=== PATIENT | female | born 1975 | race Caucasian/White ===

== ENCOUNTER 2019-01-04 12:21 | Emergency (ER) | payer MEDICAID ==
--- NOTE | 2019-01-04 12:51 | EDM.PDOC ---
ED HPI GENERAL MEDICAL PROBLEM - General Chief Complaint: Abdominal Pain Stated Complaint: PRIVATE VEHICLE Time Seen by Provider: 01/04/19 12:35 Source of Information: Reports: Patient History Limitations: Reports: No Limitations - History of Present Illness INITIAL COMMENTS - FREE TEXT/NARRATIVE: This 43 yo female patient reports to the ED with generalized abdominal pain and bloating. The patient reports she has been having increased abdominal pain over the past week. The patient reports she has a history of pancreatitis (previous hospitalizations in [place] and out of [facility]), Hep C, HTN, depression and anxiety. The patient reports she has been drinking up to a liter of Whiskey per day. The patient reports she drinks to control the pain, when she drinks her pain increases which just starts the cycle over. The patient also reports nausea. Onset: Gradual Duration: Week(s):, Constant, Getting Worse Location: Reports: Abdomen Quality: Reports: Other Severity: Severe Improves with: Reports: None Worsens with: Reports: None Context: Reports: Other Associated Symptoms: Reports: No Other Symptoms Abdomen Pain Score (Numeric/FACES): 8 - Related Data Allergies Allergy/AdvReac Type Severity Reaction Status Date / Time No Known Allergies Allergy Verified 01/04/19 12:41 Home Meds: Home Meds Sertraline [Zoloft] 25 mg PO DAILY 06/20/18 [History] traZODone HCl [Trazodone HCl] 50 mg PO DAILY 06/20/18 [History] Propranolol [Inderal] 20 mg PO DAILY 01/04/19 [History] Past Medical History Gastrointestinal History: Reports: Hepatitis, Pancreatitis Genitourinary History: Reports: Renal Calculus Psychiatric History: Reports: Anxiety, Depression - Infectious Disease History Infectious Disease History: Reports: Hepatitis C Social & Family History - Family History Family Medical History: Noncontributory - Tobacco Use Smoking Status *Q: Former Smoker Used Tobacco, but Quit: Yes Month/Year Tobacco Last Used: 2017 - Caffeine Use Caffeine Use: Reports: None - Alcohol Use Days Per Week of Alcohol Use: 7 Number of Drinks Per Day: 1 Total Drinks Per Week: 7 - Recreational Drug Use Recreational Drug Use: No ED ROS GENERAL - Review of Systems Review Of Systems: ROS reveals no pertinent complaints other than HPI. ED EXAM, GI/ABD - Physical Exam Exam: See Below Exam Limited By: No Limitations General Appearance: Alert, WD/WN, Moderate Distress Eyes: Bilateral: Normal Appearance, EOMI Ears: Normal External Exam, Normal Canal, Hearing Grossly Normal, Normal TMs Nose: Normal Inspection, Normal Mucosa, No Blood Throat/Mouth: Normal Inspection, Normal Lips, Normal Teeth, Normal Gums, Normal Oropharynx, Normal Voice, No Airway Compromise Head: Atraumatic, Normocephalic Neck: Normal Inspection, Supple, Non-Tender, Full Range of Motion Respiratory/Chest: No Respiratory Distress, Lungs Clear, Normal Breath Sounds, No Accessory Muscle Use, Chest Non-Tender Cardiovascular: Normal Peripheral Pulses, Regular Rate, Rhythm, No Edema, No Gallop, No JVD, No Murmur, No Rub GI/Abdominal Exam: No Abnormal Bruit, No Mass, Pelvis Stable, Distended, Tender (diffuse (increased tenderness in upper abdomen)) (Female) Exam: Deferred Rectal (Female) Exam: Deferred Back Exam: Normal Inspection, Full Range of Motion, NT Extremities: Normal Inspection, Normal Range of Motion, Non-Tender, Normal Capillary Refill, No Pedal Edema Neurological: Alert, Oriented, CN II-XII Intact, Normal Cognition, Normal Gait, Normal Reflexes, No Motor/Sensory Deficits Psychiatric: Normal Affect, Normal Mood Skin Exam: Warm, Dry, Intact, Normal Color, No Rash Lymphatic: No Adenopathy Course - Vital Signs Last Recorded V/S: Last Vital Signs Temp 36.6 C 01/04/19 15:13 Pulse 70 01/04/19 15:13 Resp 20 01/04/19 15:13 BP 113/75 01/04/19 15:13 Pulse Ox 96 01/04/19 15:13 - Orders/Labs/Meds Orders: Active Orders 24 hr Category Date Time Status Lactated Ringers [Ringers, Lactated] 1,000 ml Med 01/04/19 12:45 Ordered IV ASDIRECTED Lactated Ringers [Ringers, Lactated] 1,000 ml Med 01/04/19 16:22 Ordered IV ASDIRECTED Medication Orders Lactated Ringer's (Ringers, Lactated) 1,000 mls @ 999 mls/hr IV ASDIRECTED JOHANA Last Admin: 01/04/19 13:04 Dose: 999 mls/hr Lactated Ringer's (Ringers, Lactated) 1,000 mls @ 250 mls/hr IV ASDIRECTED [facility] Labs: Laboratory Tests 01/04/19 01/04/19 01/04/19 Range/Units 12:52 12:52 12:52 WBC (5.0-10.0) 10^3/uL RBC (4.2-5.4) 10^6/uL Hgb (12.0-16.0) g/dL Hct (37.0-47.0) % MCV (80-100) fL MCH (27.0-34.0) pg MCHC (33.0-35.0) g/dL Plt Count (150-450) 10^3/uL Neut % (Auto) (42.2-75.2) % Lymph % (Auto) (20.5-50.1) % Evangeline % (Auto) (2-8) % Eos % (Auto) (1.0-3.0) % Baso % (Auto) (0.0-1.0) % Sodium (135-145) mmol/L Potassium (3.6-5.0) mmol/L Chloride (101-111) mmol/L Carbon Dioxide (21.0-31.0) mmol/L Anion Gap BUN (7-18) mg/dL Creatinine (0.6-1.3) mg/dL Est Cr Clr Drug Dosing mL/min Estimated GFR (MDRD) BUN/Creatinine Ratio Glucose (74-105) mg/dL Calcium (8.4-10.2) mg/dl Magnesium (1.8-2.5) mg/dL Total Bilirubin (0.2-1.0) mg/dL AST (10-42) IU/L ALT (10-60) IU/L Alkaline Phosphatase (42-121) IU/L Ammonia (11-35) umol/L Total Protein (6.7-8.2) g/dl Albumin (3.2-5.5) g/dl Globulin Albumin/Globulin Ratio Amylase (28-100) U/L Lipase (22-51) U/L Urine Color Yellow (YELLOW) Urine Appearance Clear (CLEAR) Urine pH 6.0 (5.0-9.0) Ur Specific [place] <= 1.005 (1.005-1.030) Urine Protein Negative (NEGATIVE) Urine Glucose (UA) Negative (NEGATIVE) Urine Ketones Negative (NEGATIVE) Urine Occult Blood Negative (NEGATIVE) Urine Nitrite Negative (NEGATIVE) Urine Bilirubin Negative (NEGATIVE) Urine Urobilinogen 0.2 (0.2-1.0) mg/dL Ur Leukocyte Esterase Negative (NEGATIVE) Urine HCG, Qual Negative Salicylates mg/dL Urine Opiates Screen Negative (NEGATIVE) Ur Oxycodone Screen Negative (NEGATIVE) Urine Methadone Screen Negative (NEGATIVE) Acetaminophen ug/mL Ur Barbiturates Screen Negative (NEGATIVE) U Tricyclic Antidepress Negative (NEGATIVE) Ur Phencyclidine Scrn Negative (NEGATIVE) Ur Amphetamine Screen Negative (NEGATIVE) U Methamphetamines Scrn Negative (NEGATIVE) Urine MDMA Screen Negative (NEGATIVE) U Benzodiazepines Scrn Negative (NEGATIVE) Urine Cocaine Screen Negative (NEGATIVE) U Marijuana (THC) Screen Negative (NEGATIVE) Ethyl Alcohol mg/dL 01/04/19 01/04/19 01/04/19 Range/Units 13:01 13:01 13:01 WBC 4.5 L (5.0-10.0) 10^3/uL RBC 4.26 (4.2-5.4) 10^6/uL Hgb 13.9 (12.0-16.0) g/dL Hct 40.3 (37.0-47.0) % MCV 94.6 (80-100) fL MCH 32.6 (27.0-34.0) pg MCHC 34.5 (33.0-35.0) g/dL Plt Count 126 L (150-450) 10^3/uL Neut % (Auto) 58.2 (42.2-75.2) % Lymph % (Auto) 27.9 (20.5-50.1) % Evangeline % (Auto) 11.3 H (2-8) % Eos % (Auto) 2.2 (1.0-3.0) % Baso % (Auto) 0.4 (0.0-1.0) % Sodium (135-145) mmol/L Potassium (3.6-5.0) mmol/L Chloride (101-111) mmol/L Carbon Dioxide (21.0-31.0) mmol/L Anion Gap BUN (7-18) mg/dL Creatinine (0.6-1.3) mg/dL Est Cr Clr Drug Dosing mL/min Estimated GFR (MDRD) BUN/Creatinine Ratio Glucose (74-105) mg/dL Calcium (8.4-10.2) mg/dl Magnesium 1.7 L (1.8-2.5) mg/dL Total Bilirubin (0.2-1.0) mg/dL AST (10-42) IU/L ALT (10-60) IU/L Alkaline Phosphatase (42-121) IU/L Ammonia 39 H (11-35) umol/L Total Protein (6.7-8.2) g/dl Albumin (3.2-5.5) g/dl Globulin Albumin/Globulin Ratio Amylase 56 (28-100) U/L Lipase 39 (22-51) U/L Urine Color (YELLOW) Urine Appearance (CLEAR) Urine pH (5.0-9.0) Ur Specific [place] (1.005-1.030) Urine Protein (NEGATIVE) Urine Glucose (UA) (NEGATIVE) Urine Ketones (NEGATIVE) Urine Occult Blood (NEGATIVE) Urine Nitrite (NEGATIVE) Urine Bilirubin (NEGATIVE) Urine Urobilinogen (0.2-1.0) mg/dL Ur Leukocyte Esterase (NEGATIVE) Urine HCG, Qual Salicylates < 4 mg/dL Urine Opiates Screen (NEGATIVE) Ur Oxycodone Screen (NEGATIVE) Urine Methadone Screen (NEGATIVE) Acetaminophen < 10 ug/mL Ur Barbiturates Screen (NEGATIVE) U Tricyclic Antidepress (NEGATIVE) Ur Phencyclidine Scrn (NEGATIVE) Ur Amphetamine Screen (NEGATIVE) U Methamphetamines Scrn (NEGATIVE) Urine MDMA Screen (NEGATIVE) U Benzodiazepines Scrn (NEGATIVE) Urine Cocaine Screen (NEGATIVE) U Marijuana (THC) Screen (NEGATIVE) Ethyl Alcohol 258 mg/dL 01/04/19 Range/Units 13:01 WBC (5.0-10.0) 10^3/uL RBC (4.2-5.4) 10^6/uL Hgb (12.0-16.0) g/dL Hct (37.0-47.0) % MCV (80-100) fL MCH (27.0-34.0) pg MCHC (33.0-35.0) g/dL Plt Count (150-450) 10^3/uL Neut % (Auto) (42.2-75.2) % Lymph % (Auto) (20.5-50.1) % Evangeline % (Auto) (2-8) % Eos % (Auto) (1.0-3.0) % Baso % (Auto) (0.0-1.0) % Sodium 139 (135-145) mmol/L Potassium 4.0 (3.6-5.0) mmol/L Chloride 102 (101-111) mmol/L Carbon Dioxide 27.0 (21.0-31.0) mmol/L Anion Gap 14.0 BUN 15 (7-18) mg/dL Creatinine 0.9 (0.6-1.3) mg/dL Est Cr Clr Drug Dosing 71.03 mL/min Estimated GFR (MDRD) > 60 BUN/Creatinine Ratio 16.66 Glucose 90 (74-105) mg/dL Calcium 9.0 (8.4-10.2) mg/dl Magnesium (1.8-2.5) mg/dL Total Bilirubin 0.9 (0.2-1.0) mg/dL AST 331 H (10-42) IU/L ALT 159 H (10-60) IU/L Alkaline Phosphatase 102 (42-121) IU/L Ammonia (11-35) umol/L Total Protein 8.0 (6.7-8.2) g/dl Albumin 4.3 (3.2-5.5) g/dl Globulin 3.7 Albumin/Globulin Ratio 1.16 Amylase (28-100) U/L Lipase (22-51) U/L Urine Color (YELLOW) Urine Appearance (CLEAR) Urine pH (5.0-9.0) Ur Specific [place] (1.005-1.030) Urine Protein (NEGATIVE) Urine Glucose (UA) (NEGATIVE) Urine Ketones (NEGATIVE) Urine Occult Blood (NEGATIVE) Urine Nitrite (NEGATIVE) Urine Bilirubin (NEGATIVE) Urine Urobilinogen (0.2-1.0) mg/dL Ur Leukocyte Esterase (NEGATIVE) Urine HCG, Qual Salicylates mg/dL Urine Opiates Screen (NEGATIVE) Ur Oxycodone Screen (NEGATIVE) Urine Methadone Screen (NEGATIVE) Acetaminophen ug/mL Ur Barbiturates Screen (NEGATIVE) U Tricyclic Antidepress (NEGATIVE) Ur Phencyclidine Scrn (NEGATIVE) Ur Amphetamine Screen (NEGATIVE) U Methamphetamines Scrn (NEGATIVE) Urine MDMA Screen (NEGATIVE) U Benzodiazepines Scrn (NEGATIVE) Urine Cocaine Screen (NEGATIVE) U Marijuana (THC) Screen (NEGATIVE) Ethyl Alcohol mg/dL Meds: Medications Generic Name Dose Route Start Last Admin Trade Name Freq PRN Reason Stop Dose Admin Lactated Ringer's 1,000 mls @ 999 mls/hr 01/04/19 12:45 01/04/19 13:04 Ringers, Lactated IV 999 mls/hr ASDIRECTED JOHANA Administration Lactated Ringer's 1,000 mls @ 250 mls/hr 01/04/19 16:22 Ringers, Lactated IV ASDIRECTED JOHANA Discontinued Medications Generic Name Dose Route Start Last Admin Trade Name Amanda PRN Reason Stop Dose Admin Hydromorphone HCl 1 mg 01/04/19 13:18 01/04/19 13:25 Dilaudid IVPUSH 01/04/19 13:19 1 mg ONETIME ONE Administration Iopamidol 75 ml 01/04/19 13:41 01/04/19 14:30 Isovue-300 (61%) IVPUSH 01/04/19 13:42 75 ml ONETIME ONE Administration Ondansetron HCl 4 mg 01/04/19 12:41 01/04/19 13:06 Zofran IV 01/04/19 12:42 4 mg ONETIME ONE Administration Departure - Departure Time of Disposition: 16:23 Disposition: DC/Tfer to Acute Hospital 02 Condition: Fair Clinical Impression: ETOH abuse Pancreatitis, chronic Qualifiers: Pancreatitis type: alcohol induced Qualified Code(s): K86.0 - Alcohol-induced chronic pancreatitis Abdominal pain Qualifiers: Abdominal location: epigastric Qualified Code(s): R10.13 - Epigastric pain - Discharge Information *PRESCRIPTION DRUG MONITORING PROGRAM REVIEWED*: Not Applicable *COPY OF PRESCRIPTION DRUG MONITORING REPORT IN PATIENT REBEKAH: Not Applicable Forms: Interfacility Transfer EMTALA Care Plan Goals: Discussed the patient's history, examination, lab and CT results with Dr. Adame. Dr. Adame accepted the patient for continued evaluation and further management as an inpatient at [facility] in [place]. The patient will be transported by [facility]. - My Orders Last 24 Hours: My Active Orders 01/04/19 12:45 Lactated Ringers [Ringers, Lactated] 1,000 ml IV ASDIRECTED 01/04/19 16:22 Lactated Ringers [Ringers, Lactated] 1,000 ml IV ASDIRECTED - Assessment/Plan Last 24 Hours: My Active Orders 01/04/19 12:45 Lactated Ringers [Ringers, Lactated] 1,000 ml IV ASDIRECTED 01/04/19 16:22 Lactated Ringers [Ringers, Lactated] 1,000 ml IV ASDIRECTED
[2019-01-04] MEDS: Lactated Ringers 1,000 ML IV SCH ×2 (13:04→16:30)
[2019-01-04] MEDS: Ondansetron 4 MG/2 ML SDV IV ONE (13:06)
[2019-01-04] MEDS: HYDROmorphone 1 MG/ML Syringe IVPUSH ONE ×2 (13:25→16:45)
[2019-01-04 13:39] LABS: CHLORIDE,CL 102 mmol/L (101-111); SODIUM,NA 139 mmol/L (135-145)
[2019-01-04 13:43] LABS: ACETAMINOPHEN < 10 ug/mL
[2019-01-04] MEDS: Iopamidol 612 MG/ML 75 ML Bottle IVPUSH ONE (14:30)
--- NOTE | 2019-01-04 14:57 | CT ---
EXAMINATION: Abdomen Pelvis w Cont SEX: Female AGE: 43 years CLINICAL HISTORY: 43-year-old hypertensive female with Abdominal pain and bloating. Scan technique: Volume acquisition of data from the abdomen and pelvis obtained without oral contrast but during intravenous administration 100 cc nonionic Isovue contrast (3 cc/s via injector) while the patient was lying supine on the Siemens multislice scanner [place], [place]. All data archived in the PACS system for storage, reformatting axial/sagittal/coronal planes and study. INTERPRETATION: 1. Large spleen (14 cm long) homogeneously dense without sign of splenic mass or infarct. 2. Gallbladder unremarkable. Fatty liver. Stomach, pancreas and adrenal glands unremarkable. 3. Nephrolithiasis (solitary large 6 mm diameter lower pole calyceal calcification right kidney; smaller 5.4 mm diameter calcification mid pole calyx left kidney; 6 mm diameter lower pole calyceal calcification contralateral left kidney). 4. Diverticulosis sigmoid colon without associated signs of inflammation. 5. No sign of abscess, pelvic or abdominal mass lesion, mesenteric or retroperitoneal lymphadenopathy, mechanical bowel obstruction, ascites or free intraperitoneal air. Midline uterus unremarkable. (Multiple phleboliths in the pelvis) 6. No ventral wall or inguinal hernias. Normal caliber aortoiliac vessels. Lumbar spine unremarkable. 7. Lung bases clear. Normal cardiac silhouette. CONCLUSION: Bilateral nephrolithiasis without current signs of obstructive uropathy. Diverticulosis sigmoid colon. Splenomegaly.
== END 2019-01-04 16:50 ==
LOC: DL.ED 12:21
DX: K86.0 Alcohol-induced chronic pancreatitis (principal); F10.10 Alcohol abuse, uncomplicated; F41.9 Anxiety disorder, unspecified; F32.9 Major depressive disorder, single episode, unspecified; Z79.899 Other long term (current) drug therapy; Z87.891 Personal history of nicotine dependence; Y90.8 Blood alcohol level of 240 mg/100 ml or more
CPT/HCPCS: 36415; 74177; 80053; 80305-QW; 81003; 81025; 82140; 82150; 83690; 83735; 85025; 96365; 96375; 96376; 99284-25; G0480; J1170; J2405; J7120; Q9967

== ENCOUNTER 2019-11-03 11:42 | Emergency (ER) | payer MEDICAID ==
[2019-11-03] MEDS ORDERED: MVI, Adult with Vitamin K 10 ML, Folic Acid 1 MG, Thiamine 100 MG in Lactated Ringers 1... IV ONE ×4 (11:59)
[2019-11-03 12:47] LABS: CHLORIDE,CL 98 mmol/L (98-107); SODIUM,NA 135 mmol/L (136-145)
[2019-11-03] MEDS ORDERED: Potassium Chloride 10 MEQ Tab.ER PO ONE (12:58)
[2019-11-03] MEDS ORDERED: Sodium Chloride 0.9% 500 ML IV ONE (12:59)
--- NOTE | 2019-11-03 13:01 | CT ---
EXAMINATION: Head wo Cont SEX: Female AGE: 43 years CLINICAL HISTORY: 43-year-old female emergency department with altered mental status. Hypertension. Scan technique: Volume acquisition of data emergency unenhanced CT scan of the head and brain obtained with the patient lying supine on the Siemens multislice scanner [place], [place]. All data archived in the PACS system for storage, reformatting axial/sagittal/coronal planes and study (bone/brain windows). Interpretation: 1. Uniformly thick bony calvarium. No sign of pathologic skeletal lesion, skull fracture, underlying brain contusion or epidural/subdural hematoma. 2. Symmetric clear pneumatization of the paranasal and mastoid sinuses. Normal TMJs and optic globes. 3. No supratentorial or posterior fossa mass lesion. 4. Symmetric hatch-white matter pattern and underlying mirror-image normal ventricular system. Physiologic midline pineal and symmetric choroid plexus calcifications. 5. No focal areas of ischemic infarct or signs of encephalomalacia. 6. No sign of acute intracerebral, intraventricular or subarachnoid bleed. 7. Cerebellum and brainstem unremarkable. CONCLUSION: Negative emergency unenhanced CT scan, head and brain.
--- NOTE | 2019-11-03 13:38 | EDM.PDOC ---
ED HPI GENERAL MEDICAL PROBLEM - General Chief Complaint: Neurological Problem Stated Complaint: UNK Time Seen by Provider: 11/03/19 12:40 Source of Information: Reports: Patient, RN, Other History Limitations: Reports: No Limitations - History of Present Illness INITIAL COMMENTS - FREE TEXT/NARRATIVE: ED via [facility] with altered mental status. Patient reported to have gone to clinic there with fatigue and confusion. No known injury. No fever or cough. Hx ETOH, Remote drug use. VSS. Patient drowsy on arrival but responds to questions - Related Data Allergies Allergy/AdvReac Type Severity Reaction Status Date / Time No Known Allergies Allergy Verified 11/03/19 12:34 Home Meds: Home Meds Sertraline [Zoloft] 25 mg PO DAILY 06/20/18 [History] traZODone HCl [Trazodone HCl] 50 mg PO DAILY 06/20/18 [History] Propranolol [Inderal] 20 mg PO DAILY 01/04/19 [History] Past Medical History Gastrointestinal History: Reports: Hepatitis, Pancreatitis Genitourinary History: Reports: Renal Calculus Psychiatric History: Reports: Anxiety, Depression - Infectious Disease History Infectious Disease History: Reports: Hepatitis C Social & Family History - Family History Family Medical History: Noncontributory - Tobacco Use Smoking Status *Q: Never Smoker - Caffeine Use Caffeine Use: Reports: None - Alcohol Use Days Per Week of Alcohol Use: 7 Number of Drinks Per Day: 10 Total Drinks Per Week: 70 - Recreational Drug Use Recreational Drug Use: No ED ROS GENERAL - Review of Systems Review Of Systems: Comprehensive ROS is negative, except as noted in HPI. - Physical Exam Exam: See Below Exam Limited By: No Limitations General Appearance: Alert, Mild Distress Eye Exam: Bilateral Eye: EOMI Ears: Normal External Exam Nose: Normal Inspection Throat/Mouth: Normal Inspection Respiratory/Chest: No Respiratory Distress Cardiovascular: Normal Peripheral Pulses, Regular Rate, Rhythm. No: No Edema (trace) GI/Abdominal: Normal Bowel Sounds, Soft, Distended. No: Abnormal Bowel Sounds Neuro Exam (Abbreviated): Alert, Oriented (person place, slow responses) Back Exam: Normal Inspection, Full Range of Motion Extremities: Normal Range of Motion Psychiatric: Normal Affect, Flat Affect Skin Exam: Warm, Dry, Intact, Pallor Course - Vital Signs Last Recorded V/S: Last Vital Signs Temp 97.8 F 11/03/19 12:39 Pulse 73 11/03/19 12:39 Resp 16 11/03/19 12:39 BP 120/75 11/03/19 12:39 Pulse Ox 96 11/03/19 12:39 - Orders/Labs/Meds Labs: Laboratory Tests 11/03/19 11/03/19 11/03/19 Range/Units 12:06 12:18 12:18 WBC 8.2 (5.0-10.0) 10^3/uL RBC 3.30 L (4.2-5.4) 10^6/uL Hgb 12.5 (12.0-16.0) g/dL Hct 34.8 L (37.0-47.0) % MCV 105.5 H D (80-100) fL MCH 37.9 H (27.0-34.0) pg MCHC 35.9 H (33.0-35.0) g/dL Plt Count 158 (150-450) 10^3/uL Neut % (Auto) 70.9 (42.2-75.2) % Lymph % (Auto) 19.6 L (20.5-50.1) % Morrill % (Auto) 8.4 H (2-8) % Eos % (Auto) 1.0 (1.0-3.0) % Baso % (Auto) 0.1 (0.0-1.0) % PT 16.8 H (9.0-12.0) SEC INR 1.8 H (0.9-1.2) Sodium (136-145) mmol/L Potassium (3.5-5.1) mmol/L Chloride (98-107) mmol/L Carbon Dioxide (21-32) mmol/L Anion Gap (7-13) mEq/L BUN (7-18) mg/dL Creatinine (0.55-1.02) mg/dL Est Cr Clr Drug Dosing Estimated GFR (MDRD) BUN/Creatinine Ratio (No establ ref range) Glucose (74-99) mg/dL POC Glucose 84 (70-105) mg/dl Lactic Acid (0.4-2.0) mmol/L Calcium (8.5-10.1) mg/dL Total Bilirubin (0.2-1.0) mg/dL AST (15-37) U/L ALT (14-59) U/L Alkaline Phosphatase (46-116) U/L Ammonia (11-32) umol/L Total Protein (6.4-8.2) g/dL Albumin (3.4-5.0) g/dL Globulin Albumin/Globulin Ratio Amylase (25-115) U/L Lipase (73-393) U/L HCG, Qual Urine Color (YELLOW) Urine Appearance (CLEAR) Urine pH (5.0-9.0) Ur Specific La[place] (1.005-1.030) Urine Protein (NEGATIVE) Urine Glucose (UA) (NEGATIVE) Urine Ketones (NEGATIVE) Urine Occult Blood (NEGATIVE) Urine Nitrite (NEGATIVE) Urine Bilirubin (NEGATIVE) Urine Urobilinogen (0.2-1.0) mg/dL Ur Leukocyte Esterase (NEGATIVE) Urine RBC /HPF Urine WBC (0-5/HPF) /HPF Ur Epithelial Cells (NOT SEEN) /HPF Amorphous Sediment (NOT SEEN) /HPF Urine Bacteria (0-FEW/HPF) /HPF Granular Casts (Auto) Urine Mucus (NOT SEEN) /LPF Urine Opiates Screen (NEGATIVE) Ur Oxycodone Screen (NEGATIVE) Urine Methadone Screen (NEGATIVE) Ur Barbiturates Screen (NEGATIVE) U Tricyclic Antidepress (NEGATIVE) Ur Phencyclidine Scrn (NEGATIVE) Ur Amphetamine Screen (NEGATIVE) U Methamphetamines Scrn (NEGATIVE) Urine MDMA Screen (NEGATIVE) U Benzodiazepines Scrn (NEGATIVE) Urine Cocaine Screen (NEGATIVE) U Marijuana (THC) Screen (NEGATIVE) Ethyl Alcohol (0) mg/dL Ketones 11/03/19 11/03/19 11/03/19 Range/Units 12:18 12:18 12:18 WBC (5.0-10.0) 10^3/uL RBC (4.2-5.4) 10^6/uL Hgb (12.0-16.0) g/dL Hct (37.0-47.0) % MCV (80-100) fL MCH (27.0-34.0) pg MCHC (33.0-35.0) g/dL Plt Count (150-450) 10^3/uL Neut % (Auto) (42.2-75.2) % Lymph % (Auto) (20.5-50.1) % Morrill % (Auto) (2-8) % Eos % (Auto) (1.0-3.0) % Baso % (Auto) (0.0-1.0) % PT (9.0-12.0) SEC INR (0.9-1.2) Sodium 135 L (136-145) mmol/L Potassium 3.0 L (3.5-5.1) mmol/L Chloride 98 (98-107) mmol/L Carbon Dioxide 25 (21-32) mmol/L Anion Gap 15.0 H (7-13) mEq/L BUN 24 H (7-18) mg/dL Creatinine 1.31 H (0.55-1.02) mg/dL Est Cr Clr Drug Dosing TNP Estimated GFR (MDRD) 45 BUN/Creatinine Ratio 18.3 (No establ ref range) Glucose 84 (74-99) mg/dL POC Glucose (70-105) mg/dl Lactic Acid 0.4 (0.4-2.0) mmol/L Calcium 8.4 L (8.5-10.1) mg/dL Total Bilirubin 3.2 H (0.2-1.0) mg/dL AST 434 H (15-37) U/L ALT 132 H (14-59) U/L Alkaline Phosphatase 103 (46-116) U/L Ammonia 164 H (11-32) umol/L Total Protein 7.7 (6.4-8.2) g/dL Albumin 2.9 L (3.4-5.0) g/dL Globulin 4.8 Albumin/Globulin Ratio 0.60 Amylase 46 (25-115) U/L Lipase 333 (73-393) U/L HCG, Qual Urine Color (YELLOW) Urine Appearance (CLEAR) Urine pH (5.0-9.0) Ur Specific [place] (1.005-1.030) Urine Protein (NEGATIVE) Urine Glucose (UA) (NEGATIVE) Urine Ketones (NEGATIVE) Urine Occult Blood (NEGATIVE) Urine Nitrite (NEGATIVE) Urine Bilirubin (NEGATIVE) Urine Urobilinogen (0.2-1.0) mg/dL Ur Leukocyte Esterase (NEGATIVE) Urine RBC /HPF Urine WBC (0-5/HPF) /HPF Ur Epithelial Cells (NOT SEEN) /HPF Amorphous Sediment (NOT SEEN) /HPF Urine Bacteria (0-FEW/HPF) /HPF Granular Casts (Auto) Urine Mucus (NOT SEEN) /LPF Urine Opiates Screen (NEGATIVE) Ur Oxycodone Screen (NEGATIVE) Urine Methadone Screen (NEGATIVE) Ur Barbiturates Screen (NEGATIVE) U Tricyclic Antidepress (NEGATIVE) Ur Phencyclidine Scrn (NEGATIVE) Ur Amphetamine Screen (NEGATIVE) U Methamphetamines Scrn (NEGATIVE) Urine MDMA Screen (NEGATIVE) U Benzodiazepines Scrn (NEGATIVE) Urine Cocaine Screen (NEGATIVE) U Marijuana (THC) Screen (NEGATIVE) Ethyl Alcohol < 3 (0) mg/dL Ketones Positive 11/03/19 11/03/19 11/03/19 Range/Units 12:18 12:54 12:54 WBC (5.0-10.0) 10^3/uL RBC (4.2-5.4) 10^6/uL Hgb (12.0-16.0) g/dL Hct (37.0-47.0) % MCV (80-100) fL MCH (27.0-34.0) pg MCHC (33.0-35.0) g/dL Plt Count (150-450) 10^3/uL Neut % (Auto) (42.2-75.2) % Lymph % (Auto) (20.5-50.1) % Morrill % (Auto) (2-8) % Eos % (Auto) (1.0-3.0) % Baso % (Auto) (0.0-1.0) % PT (9.0-12.0) SEC INR (0.9-1.2) Sodium (136-145) mmol/L Potassium (3.5-5.1) mmol/L Chloride (98-107) mmol/L Carbon Dioxide (21-32) mmol/L Anion Gap (7-13) mEq/L BUN (7-18) mg/dL Creatinine (0.55-1.02) mg/dL Est Cr Clr Drug Dosing Estimated GFR (MDRD) BUN/Creatinine Ratio (No establ ref range) Glucose (74-99) mg/dL POC Glucose (70-105) mg/dl Lactic Acid (0.4-2.0) mmol/L Calcium (8.5-10.1) mg/dL Total Bilirubin (0.2-1.0) mg/dL AST (15-37) U/L ALT (14-59) U/L Alkaline Phosphatase (46-116) U/L Ammonia (11-32) umol/L Total Protein (6.4-8.2) g/dL Albumin (3.4-5.0) g/dL Globulin Albumin/Globulin Ratio Amylase (25-115) U/L Lipase (73-393) U/L HCG, Qual Negative Urine Color Dark yellow (YELLOW) Urine Appearance Slightly cloudy (CLEAR) Urine pH 6.5 (5.0-9.0) Ur Specific [place] 1.025 (1.005-1.030) Urine Protein 30 H (NEGATIVE) Urine Glucose (UA) Negative (NEGATIVE) Urine Ketones 15 H (NEGATIVE) Urine Occult Blood Large H (NEGATIVE) Urine Nitrite Negative (NEGATIVE) Urine Bilirubin Moderate H (NEGATIVE) Urine Urobilinogen 4.0 H (0.2-1.0) mg/dL Ur Leukocyte Esterase Small H (NEGATIVE) Urine RBC 50-75 H /HPF Urine WBC 10-20 H (0-5/HPF) /HPF Ur Epithelial Cells Few (NOT SEEN) /HPF Amorphous Sediment Moderate H (NOT SEEN) /HPF Urine Bacteria Few (0-FEW/HPF) /HPF Granular Casts (Auto) Occasional Urine Mucus Occasional (NOT SEEN) /LPF Urine Opiates Screen Negative (NEGATIVE) Ur Oxycodone Screen Negative (NEGATIVE) Urine Methadone Screen Negative (NEGATIVE) Ur Barbiturates Screen Negative (NEGATIVE) U Tricyclic Antidepress Negative (NEGATIVE) Ur Phencyclidine Scrn Negative (NEGATIVE) Ur Amphetamine Screen Negative (NEGATIVE) U Methamphetamines Scrn Negative (NEGATIVE) Urine MDMA Screen Negative (NEGATIVE) U Benzodiazepines Scrn Negative (NEGATIVE) Urine Cocaine Screen Negative (NEGATIVE) U Marijuana (THC) Screen Negative (NEGATIVE) Ethyl Alcohol (0) mg/dL Ketones Meds: Medications Discontinued Medications Generic Name Dose Route Start Last Admin Trade Name Freq PRN Reason Stop Dose Admin Multivitamins/Minerals 10 ml/ 1,011.2 mls @ 999 mls/hr 11/03/19 11:59 11/03/19 12:58 Folic Acid 1 mg/ Thiamine HCl IV 11/03/19 12:59 999 mls/hr 100 mg/ Lactated Ringer's ONETIME ONE Administration Sodium Chloride 500 mls @ 100 mls/hr 11/03/19 12:59 11/03/19 13:59 Normal Saline IV 11/03/19 17:58 100 mls/hr ONETIME ONE Administration Potassium Chloride 10 meq 11/03/19 12:58 11/03/19 13:26 Klor-Con 10 PO 11/03/19 12:59 10 meq ONETIME ONE Administration - Re-Assessments/Exams Free Text/Narrative Re-Assessment/Exam: 11/03/19 13:40 Dr Adame accepting. Tx via [facility]. Departure - Departure Time of Disposition: 13:40 Disposition: DC/Tfer to Acute Hospital 02 Condition: Fair Clinical Impression: Hepatic encephalopathy, Hypoglycemia, Hypokalemia - Discharge Information *PRESCRIPTION DRUG MONITORING PROGRAM REVIEWED*: No *COPY OF PRESCRIPTION DRUG MONITORING REPORT IN PATIENT REBEKAH: No Referrals: Elan Torres [facility] [Primary Care Provider] - Forms: ED Department Discharge, Interfacility Transfer MIKHAIL Sepsis Event Note (ED) - Evaluation Sepsis Screening Result: No Definite Risk
== END 2019-11-03 14:26 ==
LOC: DL.ED 11:42
DX: K72.90 Hepatic failure, unspecified without coma (principal); E16.2 Hypoglycemia, unspecified; E87.6 Hypokalemia; F41.9 Anxiety disorder, unspecified; F32.9 Major depressive disorder, single episode, unspecified; Z79.899 Other long term (current) drug therapy
CPT/HCPCS: 36415; 70450; 80053; 80305; 80307; 81001; 82009; 82140; 82150; 82962; 83605; 83690; 84703; 85025; 85610; 87086; 87088; 87186; 96365; 99285; A9270; J3411; J7040; J7120; J3490

== ENCOUNTER 2019-12-15 12:53 | Emergency (ER) | payer MEDICAID ==
--- NOTE | 2019-12-15 13:08 | EDM.PDOC ---
ED HPI GENERAL MEDICAL PROBLEM - General Chief Complaint: Neurological Problem Stated Complaint: AMBULANCE Time Seen by Provider: 12/15/19 13:08 Source of Information: Reports: Patient, EMS, Old Records, RN, RN Notes Reviewed History Limitations: Reports: Altered Mental Status - History of Present Illness INITIAL COMMENTS - FREE TEXT/NARRATIVE: Pt arrives to ER by [facility] with EMS called due to c/o "not feeling well for the past few days". Pt's boyfriend reported to EMS that the pt has become lethargic and confused. EMS reports pt was somnolent but aroused and responded to verbal stimuli and did answer questions. Pt has history of cirrhosis, pancreatitis, end stage liver disease and hepatic encephalopathy. Pt gives no further history upon arrival to ER. Pt denies any recent falls or head injury. Onset: Gradual Duration: Day(s): (3), Constant, Getting Worse Location: Reports: Generalized Quality: Reports: Other (Denies pain) Severity: Severe Improves with: Reports: None Worsens with: Reports: None Associated Symptoms: Reports: No Other Symptoms - Related Data Allergies Allergy/AdvReac Type Severity Reaction Status Date / Time No Known Allergies Allergy Verified 11/03/19 12:34 Home Meds: Home Meds Sertraline [Zoloft] 25 mg PO DAILY 06/20/18 [History] traZODone HCl [Trazodone HCl] 50 mg PO DAILY 06/20/18 [History] Propranolol [Inderal] 20 mg PO DAILY 01/04/19 [History] Past Medical History Gastrointestinal History: Reports: Cirrhosis, Hepatitis, Pancreatitis Genitourinary History: Reports: Renal Calculus Neurological History: Reports: Other (See Below) (Hepatic Encephalopathy) Psychiatric History: Reports: Anxiety, Depression - Infectious Disease History Infectious Disease History: Reports: Hepatitis C Social & Family History - Family History Family Medical History: Noncontributory - Caffeine Use Caffeine Use: Reports: None - Living Situation & Occupation Living situation: Reports: with Significant Other Occupation: Disabled ED ROS GENERAL - Review of Systems Review Of Systems: Unable To Obtain Reason Not Obtained: Altered mental status - Physical Exam Exam: See Below Exam Limited By: Altered Mental Status General Appearance: No Apparent Distress, Lethargic, Other (Chronically ill appearing) Eye Exam: Bilateral Eye: PERRL (Mild scleral icterus) Nose: Normal Inspection, No Blood Throat/Mouth: Normal Lips, No Airway Compromise Head Exam: Atraumatic, Normocephalic Neck: Normal Inspection, Full Range of Motion Respiratory/Chest: No Respiratory Distress, No Accessory Muscle Use, Chest Non- Tender, Decreased Breath Sounds. No: Crackles, Rales, Rhonchi, Wheezing, Stridor Cardiovascular: Regular Rate, Rhythm, No Edema GI/Abdominal: Normal Bowel Sounds, Soft, Non-Tender, Hepatomegaly. No: Guarding, Rigid, Rebound Neuro Exam (Abbreviated): Slow to Respond, Other (Somnolent, responds to verbal and tactile stimuli. No focal motor deficits. ) Extremities: Normal Inspection, Normal Range of Motion, Non-Tender, No Pedal Edema, Normal Capillary Refill Skin Exam: Warm, Dry, Intact, No Rash, Pallor Course - Vital Signs Last Recorded V/S: Last Vital Signs Temp 96.8 F L 12/15/19 13:20 Pulse 70 12/15/19 13:20 Resp 18 12/15/19 13:20 BP 92/43 L 12/15/19 13:20 Pulse Ox 100 12/15/19 13:20 - Orders/Labs/Meds Orders: Active Orders 24 hr Category Date Time Status Blood Glucose Check, Bedside [RC] ONETIME Care 12/15/19 13:09 Active Peripheral IV Care [RC] . DIRECTED Care 12/15/19 13:09 Active CULTURE BLOOD [BC] Stat Lab 12/15/19 13:55 Results CULTURE BLOOD [BC] Stat Lab 12/15/19 14:00 Received D5 1/2 NS w/ 40 mEq/L KCl 1,000 ml Med 12/15/19 15:30 Active IV ASDIRECTED Sodium Chloride 0.9% [Saline Flush] Med 12/15/19 13:09 Active 10 ml FLUSH ASDIRECTED PRN Blood Culture x2 Reflex Set [OM.PC] Stat Oth 12/15/19 13:08 Ordered Peripheral IV Insertion Adult [OM.PC] Stat Oth 12/15/19 13:08 Ordered Medication Orders Potassium Chloride/Dextrose/Sod Cl (D5 1/2 Ns W/ 40 Meq/L Kcl) 1,000 mls @ 150 mls/hr IV ASDIRECTED JOHANA Sodium Chloride (Saline Flush) 10 ml FLUSH ASDIRECTED PRN PRN Reason: Keep Vein Open Last Admin: 12/15/19 14:13 Dose: 10 ml Documented by: FEROZ Labs: Laboratory Tests 12/15/19 12/15/19 12/15/19 Range/Units 13:55 14:00 14:00 WBC 4.8 L (5.0-10.0) 10^3/uL RBC 2.77 L (4.2-5.4) 10^6/uL Hgb 9.3 L D (12.0-16.0) g/dL Hct 27.7 L (37.0-47.0) % MCV 100.0 D (80-100) fL MCH 33.6 (27.0-34.0) pg MCHC 33.6 (33.0-35.0) g/dL Plt Count 95 L (150-450) 10^3/uL Neut % (Auto) 71.1 (42.2-75.2) % Lymph % (Auto) 23.5 (20.5-50.1) % Lander % (Auto) 4.6 (2-8) % Eos % (Auto) 0.6 L (1.0-3.0) % Baso % (Auto) 0.2 (0.0-1.0) % PT 16.9 H (9.0-12.0) SEC INR 1.8 H (0.9-1.2) APTT 27.1 (22.0-34.0) SEC Sodium (136-145) mmol/L Potassium (3.5-5.1) mmol/L Chloride (98-107) mmol/L Carbon Dioxide (21-32) mmol/L Anion Gap (7-13) mEq/L BUN (7-18) mg/dL Creatinine (0.55-1.02) mg/dL Est Cr Clr Drug Dosing Estimated GFR (MDRD) BUN/Creatinine Ratio (No establ ref range) Glucose (74-99) mg/dL Lactic Acid (0.4-2.0) mmol/L Calcium (8.5-10.1) mg/dL Total Bilirubin (0.2-1.0) mg/dL AST (15-37) U/L ALT (14-59) U/L Alkaline Phosphatase (46-116) U/L Ammonia 167 H (11-32) umol/L Total Protein (6.4-8.2) g/dL Albumin (3.4-5.0) g/dL Globulin Albumin/Globulin Ratio Amylase (25-115) U/L Lipase (73-393) U/L Urine Color (YELLOW) Urine Appearance (CLEAR) Urine pH (5.0-9.0) Ur Specific [place] (1.005-1.030) Urine Protein (NEGATIVE) Urine Glucose (UA) (NEGATIVE) Urine Ketones (NEGATIVE) Urine Occult Blood (NEGATIVE) Urine Nitrite (NEGATIVE) Urine Bilirubin (NEGATIVE) Urine Urobilinogen (0.2-1.0) mg/dL Ur Leukocyte Esterase (NEGATIVE) Urine RBC /HPF Urine WBC (0-5/HPF) /HPF Ur Epithelial Cells (NOT SEEN) /HPF Calcium Oxalate Crystal (NOT SEEN) /HPF Amorphous Sediment (NOT SEEN) /HPF Urine Bacteria (0-FEW/HPF) /HPF Fine Granular Casts (NOT SEEN) /LPF Urine Mucus (NOT SEEN) /LPF Urine HCG, Qual Urine Opiates Screen (NEGATIVE) Ur Oxycodone Screen (NEGATIVE) Urine Methadone Screen (NEGATIVE) Ur Barbiturates Screen (NEGATIVE) U Tricyclic Antidepress (NEGATIVE) Ur Phencyclidine Scrn (NEGATIVE) Ur Amphetamine Screen (NEGATIVE) U Methamphetamines Scrn (NEGATIVE) Urine MDMA Screen (NEGATIVE) U Benzodiazepines Scrn (NEGATIVE) Urine Cocaine Screen (NEGATIVE) U Marijuana (THC) Screen (NEGATIVE) Ethyl Alcohol (0) mg/dL 12/15/19 12/15/19 12/15/19 Range/Units 14:00 14:00 14:32 WBC (5.0-10.0) 10^3/uL RBC (4.2-5.4) 10^6/uL Hgb (12.0-16.0) g/dL Hct (37.0-47.0) % MCV (80-100) fL MCH (27.0-34.0) pg MCHC (33.0-35.0) g/dL Plt Count (150-450) 10^3/uL Neut % (Auto) (42.2-75.2) % Lymph % (Auto) (20.5-50.1) % Lander % (Auto) (2-8) % Eos % (Auto) (1.0-3.0) % Baso % (Auto) (0.0-1.0) % PT (9.0-12.0) SEC INR (0.9-1.2) APTT (22.0-34.0) SEC Sodium 139 (136-145) mmol/L Potassium 3.4 L (3.5-5.1) mmol/L Chloride 104 (98-107) mmol/L Carbon Dioxide 22 (21-32) mmol/L Anion Gap 16.4 H (7-13) mEq/L BUN 15 (7-18) mg/dL Creatinine 0.99 (0.55-1.02) mg/dL Est Cr Clr Drug Dosing TNP Estimated GFR (MDRD) > 60 BUN/Creatinine Ratio 15.2 (No establ ref range) Glucose 73 L (74-99) mg/dL Lactic Acid 0.4 (0.4-2.0) mmol/L Calcium 7.7 L (8.5-10.1) mg/dL Total Bilirubin 2.0 H (0.2-1.0) mg/dL AST 261 H (15-37) U/L ALT 97 H (14-59) U/L Alkaline Phosphatase 76 (46-116) U/L Ammonia (11-32) umol/L Total Protein 6.0 L (6.4-8.2) g/dL Albumin 2.4 L (3.4-5.0) g/dL Globulin 3.6 Albumin/Globulin Ratio 0.67 Amylase 24 L (25-115) U/L Lipase 120 (73-393) U/L Urine Color (YELLOW) Urine Appearance (CLEAR) Urine pH (5.0-9.0) Ur Specific [place] (1.005-1.030) Urine Protein (NEGATIVE) Urine Glucose (UA) (NEGATIVE) Urine Ketones (NEGATIVE) Urine Occult Blood (NEGATIVE) Urine Nitrite (NEGATIVE) Urine Bilirubin (NEGATIVE) Urine Urobilinogen (0.2-1.0) mg/dL Ur Leukocyte Esterase (NEGATIVE) Urine RBC /HPF Urine WBC (0-5/HPF) /HPF Ur Epithelial Cells (NOT SEEN) /HPF Calcium Oxalate Crystal (NOT SEEN) /HPF Amorphous Sediment (NOT SEEN) /HPF Urine Bacteria (0-FEW/HPF) /HPF Fine Granular Casts (NOT SEEN) /LPF Urine Mucus (NOT SEEN) /LPF Urine HCG, Qual Negative Urine Opiates Screen (NEGATIVE) Ur Oxycodone Screen (NEGATIVE) Urine Methadone Screen (NEGATIVE) Ur Barbiturates Screen (NEGATIVE) U Tricyclic Antidepress (NEGATIVE) Ur Phencyclidine Scrn (NEGATIVE) Ur Amphetamine Screen (NEGATIVE) U Methamphetamines Scrn (NEGATIVE) Urine MDMA Screen (NEGATIVE) U Benzodiazepines Scrn (NEGATIVE) Urine Cocaine Screen (NEGATIVE) U Marijuana (THC) Screen (NEGATIVE) Ethyl Alcohol < 3 (0) mg/dL 12/15/19 12/15/19 Range/Units 14:32 14:32 WBC (5.0-10.0) 10^3/uL RBC (4.2-5.4) 10^6/uL Hgb (12.0-16.0) g/dL Hct (37.0-47.0) % MCV (80-100) fL MCH (27.0-34.0) pg MCHC (33.0-35.0) g/dL Plt Count (150-450) 10^3/uL Neut % (Auto) (42.2-75.2) % Lymph % (Auto) (20.5-50.1) % Lander % (Auto) (2-8) % Eos % (Auto) (1.0-3.0) % Baso % (Auto) (0.0-1.0) % PT (9.0-12.0) SEC INR (0.9-1.2) APTT (22.0-34.0) SEC Sodium (136-145) mmol/L Potassium (3.5-5.1) mmol/L Chloride (98-107) mmol/L Carbon Dioxide (21-32) mmol/L Anion Gap (7-13) mEq/L BUN (7-18) mg/dL Creatinine (0.55-1.02) mg/dL Est Cr Clr Drug Dosing Estimated GFR (MDRD) BUN/Creatinine Ratio (No establ ref range) Glucose (74-99) mg/dL Lactic Acid (0.4-2.0) mmol/L Calcium (8.5-10.1) mg/dL Total Bilirubin (0.2-1.0) mg/dL AST (15-37) U/L ALT (14-59) U/L Alkaline Phosphatase (46-116) U/L Ammonia (11-32) umol/L Total Protein (6.4-8.2) g/dL Albumin (3.4-5.0) g/dL Globulin Albumin/Globulin Ratio Amylase (25-115) U/L Lipase (73-393) U/L Urine Color Dark yellow (YELLOW) Urine Appearance Slightly cloudy (CLEAR) Urine pH 6.5 (5.0-9.0) Ur Specific [place] 1.025 (1.005-1.030) Urine Protein Trace H (NEGATIVE) Urine Glucose (UA) Negative (NEGATIVE) Urine Ketones 15 H (NEGATIVE) Urine Occult Blood Trace-intact H (NEGATIVE) Urine Nitrite Negative (NEGATIVE) Urine Bilirubin Moderate H (NEGATIVE) Urine Urobilinogen 1.0 (0.2-1.0) mg/dL Ur Leukocyte Esterase Negative (NEGATIVE) Urine RBC 0-5 /HPF Urine WBC 0-5 (0-5/HPF) /HPF Ur Epithelial Cells Few (NOT SEEN) /HPF Calcium Oxalate Crystal Few H (NOT SEEN) /HPF Amorphous Sediment Few (NOT SEEN) /HPF Urine Bacteria Rare (0-FEW/HPF) /HPF Fine Granular Casts Few H (NOT SEEN) /LPF Urine Mucus Few H (NOT SEEN) /LPF Urine HCG, Qual Urine Opiates Screen Negative (NEGATIVE) Ur Oxycodone Screen Negative (NEGATIVE) Urine Methadone Screen Negative (NEGATIVE) Ur Barbiturates Screen Negative (NEGATIVE) U Tricyclic Antidepress Negative (NEGATIVE) Ur Phencyclidine Scrn Negative (NEGATIVE) Ur Amphetamine Screen Negative (NEGATIVE) U Methamphetamines Scrn Negative (NEGATIVE) Urine MDMA Screen Negative (NEGATIVE) U Benzodiazepines Scrn Negative (NEGATIVE) Urine Cocaine Screen Negative (NEGATIVE) U Marijuana (THC) Screen Negative (NEGATIVE) Ethyl Alcohol (0) mg/dL Meds: Medications Generic Name Dose Route Start Last Admin Trade Name Freq PRN Reason Stop Dose Admin Potassium Chloride/Dextrose/Sod Cl 1,000 mls @ 150 mls/hr 12/15/19 15:30 D5 1/2 Ns W/ 40 Meq/L Kcl IV ASDIRECTED JOHANA Sodium Chloride 10 ml 12/15/19 13:09 12/15/19 14:13 Saline Flush FLUSH 10 ml ASDIRECTED PRN Administration Keep Vein Open Discontinued Medications Generic Name Dose Route Start Last Admin Trade Name Freq PRN Reason Stop Dose Admin Dextrose/Water 50 ml 12/15/19 13:49 12/15/19 14:05 Dextrose 50% In Water IVPUSH 12/15/19 13:50 50 ml ONETIME ONE Administration Sodium Chloride 1,000 mls @ 999 mls/hr 12/15/19 13:09 12/15/19 14:06 Normal Saline IV 12/15/19 14:09 999 mls/hr .BOLUS ONE Administration Lactulose 40 gm 12/15/19 14:58 12/15/19 15:09 Cephulac PO 12/15/19 14:59 40 gm ONETIME ONE Administration - Re-Assessments/Exams Free Text/Narrative Re-Assessment/Exam: 12/15/19 Pt's ammonia 167, presentation similar to past episodes of hepatic encephalopathy. Records indicate pt's BP runs on the low side, today 92/43 on arrival. Fluid bolus give for pressure support as abdomen does not appear to have significant ascites, and no peripheral edema. Pt able to follow commands to sit and drink lactulose. No beds available at [facility], or [facility]. Pt accepted to [facility] by Dr. Jj. Departure - Departure Time of Disposition: 15:36 Disposition: DC/Tfer to [facility] 02 Condition: Fair, Serious Clinical Impression: Acute hepatic encephalopathy - Discharge Information *PRESCRIPTION DRUG MONITORING PROGRAM REVIEWED*: No *COPY OF PRESCRIPTION DRUG MONITORING REPORT IN PATIENT REBEKAH: No Forms: ED Department Discharge, Interfacility Transfer MIKHAIL Sepsis Event Note (ED) - Focused Exam Vital Signs: Vital Signs Temp Pulse Resp BP Pulse Ox 12/15/19 13:20 96.8 F L 70 18 92/43 L 100 - My Orders Last 24 Hours: My Active Orders 12/15/19 13:08 Blood Culture x2 Reflex Set [OM.PC] Stat Peripheral IV Insertion Adult [OM.PC] Stat 12/15/19 13:09 Blood Glucose Check, Bedside [RC] ONETIME Peripheral IV Care [RC] . DIRECTED Sodium Chloride 0.9% [Saline Flush] 10 ml FLUSH ASDIRECTED PRN 12/15/19 13:55 CULTURE BLOOD [BC] Stat 12/15/19 14:00 CULTURE BLOOD [BC] Stat 12/15/19 15:30 D5 1/2 NS w/ 40 mEq/L KCl 1,000 ml IV ASDIRECTED - Assessment/Plan Last 24 Hours: My Active Orders 12/15/19 13:08 Blood Culture x2 Reflex Set [OM.PC] Stat Peripheral IV Insertion Adult [OM.PC] Stat 12/15/19 13:09 Blood Glucose Check, Bedside [RC] ONETIME Peripheral IV Care [RC] . DIRECTED Sodium Chloride 0.9% [Saline Flush] 10 ml FLUSH ASDIRECTED PRN 12/15/19 13:55 CULTURE BLOOD [BC] Stat 12/15/19 14:00 CULTURE BLOOD [BC] Stat 12/15/19 15:30 D5 1/2 NS w/ 40 mEq/L KCl 1,000 ml IV ASDIRECTED
[2019-12-15] MEDS ORDERED: Sodium Chloride 0.9% 10 ML Syringe FLUSH PRN (13:09)
[2019-12-15] MEDS ORDERED: Sodium Chloride 0.9% 1,000 ML IV ONE (13:09)
[2019-12-15] MEDS ORDERED: 50% Dextrose in Water 50 ML Syringe IVPUSH ONE (13:49)
[2019-12-15 14:25] LABS: PTT,PARTIAL THROMBOPLSTIN TIME 27.1 SEC (22.0-34.0)
[2019-12-15 14:28] LABS: ANION GAP 16.4 mEq/L (7-13); CHLORIDE,CL 104 mmol/L (98-107); SODIUM,NA 139 mmol/L (136-145)
[2019-12-15] MEDS ORDERED: Lactulose Soln 10 GM/15 ML 30 ML UD Cup PO ONE (14:58)
[2019-12-15] MEDS ORDERED: D5 1/2 NS w/ 40 mEq/L KCl 1,000 ML IV SCH (15:30)
== END 2019-12-15 16:25 ==
LOC: DL.ED 12:53
DX: K72.00 Acute and subacute hepatic failure without coma (principal); F32.9 Major depressive disorder, single episode, unspecified; F41.9 Anxiety disorder, unspecified; Z79.899 Other long term (current) drug therapy
CPT/HCPCS: 36415; 80053; 80305-QW; 80307; 81001; 81025; 82140; 82150; 82962; 83605; 83690; 85025; 85610; 85730; 87040; 96361; 96374; 99285-25; A9270-GY; J3480; J7030

== ENCOUNTER 2020-03-18 14:46 | Inpatient (IN) | payer MEDICAID ==
--- NOTE | 2020-03-18 16:30 | EDM.PDOC ---
ED HPI GENERAL MEDICAL PROBLEM - General Chief Complaint: Respiratory Problem Stated Complaint: SHORTNESS OF BREATH/COVID SYMPTOMS Time Seen by Provider: 03/18/20 15:45 Source of Information: Reports: Patient, RN, RN Notes Reviewed History Limitations: Reports: No Limitations - History of Present Illness INITIAL COMMENTS - FREE TEXT/NARRATIVE: Patient presents to the ED via personal vehicle with complaints of nausea, vomiting, and diarrhea. The patient reports the nausea, vomiting, and diarrhea began about four days ago and have maintained in severity over that time. She s tates she has not been able to eat or drink since symptoms began as everything she eats "..comes back up." She states her last bought of emesis was this morning and her last stool was yesterday night. Additionally, she attest to shaking chills, headache, and left upper quadrant abdominal pain. She denies cough, sore throat, hematemesis, dysuria, hematuria, melena, or hematochezia. The patient reports she has a history of alcohol-induced cirrhosis and is currently taking lactulose; she states she has not taken her lactulose since the onset of the aforementioned symptoms and is concerned her ammonia is elevated. She states he last drink was "..sometime in December." She denies tobacco or recreational drug use. She has not taken any medications for these symptoms. Abdominal Pain Score (Numeric/FACES): 6 - Related Data Allergies Allergy/AdvReac Type Severity Reaction Status Date / Time No Known Allergies Allergy Verified 03/18/20 15:30 Home Meds: Home Meds Sertraline [Zoloft] 25 mg PO DAILY 06/20/18 [History] traZODone HCl [Trazodone HCl] 50 mg PO DAILY 06/20/18 [History] Propranolol [Inderal] 20 mg PO DAILY 01/04/19 [History] Past Medical History Gastrointestinal History: Reports: Cirrhosis, Hepatitis, Pancreatitis Genitourinary History: Reports: Renal Calculus Neurological History: Reports: Other (See Below) (Hepatic Encephalopathy) Psychiatric History: Reports: Anxiety, Depression - Infectious Disease History Infectious Disease History: Reports: Hepatitis C Social & Family History - Family History Family Medical History: Noncontributory - Caffeine Use Caffeine Use: Reports: None - Living Situation & Occupation Living situation: Reports: with Significant Other Occupation: Disabled ED ROS GENERAL - Review of Systems Review Of Systems: Comprehensive ROS is negative, except as noted in HPI. ED EXAM, GENERAL - Physical Exam Exam: See Below Exam Limited By: No Limitations General Appearance: Alert, WD/WN, No Apparent Distress Eye Exam: Bilateral Eye: EOMI, PERRL, Other (Jaundice to sclera) Ears: Normal External Exam, Normal Canal, Hearing Grossly Normal Head: Atraumatic, Normocephalic Neck: Normal Inspection, Supple, Non-Tender, Full Range of Motion Respiratory/Chest: No Respiratory Distress, Lungs Clear, Normal Breath Sounds, No Accessory Muscle Use, Chest Non-Tender Cardiovascular: Normal Peripheral Pulses, Regular Rate, Rhythm, No Edema, No Gallop, No Murmur, No Rub Peripheral Pulses: 2+: Radial (L), Radial (R) GI/Abdominal: No Distention, No Mass, Pelvis Stable, Tender (LUQ), Hepatomegaly Back Exam: Normal Inspection, Full Range of Motion. No: CVA Tenderness (L), CVA Tenderness (R) Extremities: Normal Inspection, Normal Range of Motion, Non-Tender, No Pedal Edema, Normal Capillary Refill Neurological: Alert, Oriented, CN II-XII Intact, Normal Cognition, Normal Gait, No Motor/Sensory Deficits Psychiatric: Normal Affect, Normal Mood Skin Exam: Warm, Dry, Intact, No Rash. No: Ecchymosis, Erythema, Mottled, Pallor, Petechiae Course - Vital Signs Last Recorded V/S: Last Vital Signs Temp 97.3 F 03/18/20 16:21 Pulse 79 03/18/20 16:21 Resp 16 03/18/20 16:21 BP 105/68 03/18/20 16:21 Pulse Ox 100 03/18/20 16:21 - Orders/Labs/Meds Orders: Active Orders 24 hr Category Date Time Status Admission Diagnosis [ADT] Stat ADT 03/18/20 18:33 Ordered Admission Status [Patient Status] [ADT] Routine ADT 03/18/20 18:33 Ordered CHLAMYDIA AND GONORRHEA BY TMA Stat Lab 03/18/20 17:34 Ordered CULTURE BLOOD [BC] Stat Lab 03/18/20 16:18 Received CULTURE URINE [RM] Stat Lab 03/18/20 16:21 Received Potassium Chloride [KCL 20 MEQ in Water 100 ML] 20 meq Med 03/18/20 17:07 Active Premix Bag 1 bag IV ONETIME Sodium Chloride 0.9% [Normal Saline] 1,000 ml Med 03/18/20 17:10 Active IV ASDIRECTED Medication Orders Potassium Chloride 20 meq/ (Premix) 100 mls @ 50 mls/hr IV ONETIME ONE Stop: 03/18/20 19:06 Last Admin: 03/18/20 17:36 Dose: 50 mls/hr Documented by: ADELA Sodium Chloride (Normal Saline) 1,000 mls @ 125 mls/hr IV ASDIRECTED ONE Stop: 03/19/20 01:09 Last Admin: 03/18/20 17:29 Dose: 125 mls/hr Documented by: ADELA Labs: Laboratory Tests 03/18/20 03/18/20 03/18/20 Range/Units 16:18 16:18 16:18 WBC 5.8 (5.0-10.0) 10^3/uL RBC 2.93 L (4.2-5.4) 10^6/uL Hgb 9.2 L (12.0-16.0) g/dL Hct 28.3 L (37.0-47.0) % MCV 96.6 D (80-100) fL MCH 31.4 (27.0-34.0) pg MCHC 32.5 L (33.0-35.0) g/dL Plt Count 90 L (150-450) 10^3/uL Neut % (Auto) 69.3 (42.2-75.2) % Lymph % (Auto) 21.8 (20.5-50.1) % [place] % (Auto) 7.3 (2-8) % Eos % (Auto) 1.4 (1.0-3.0) % Baso % (Auto) 0.2 (0.0-1.0) % Sodium 133 L (136-145) mmol/L Potassium 2.5 L (3.5-5.1) mmol/L Chloride 96 L (98-107) mmol/L Carbon Dioxide 30 (21-32) mmol/L Anion Gap 9.5 (7-13) mEq/L BUN 8 (7-18) mg/dL Creatinine 1.25 H (0.55-1.02) mg/dL Est Cr Clr Drug Dosing 50.63 mL/min Estimated GFR (MDRD) 47 BUN/Creatinine Ratio 6.4 (No establ ref range) Glucose 193 H (74-99) mg/dL Lactic Acid 2.7 H* (0.4-2.0) mmol/L Calcium 8.0 L (8.5-10.1) mg/dL Phosphorus 3.3 (2.6-4.7) mg/dL Magnesium 1.4 L (1.8-2.4) mg/dL Total Bilirubin 2.7 H (0.2-1.0) mg/dL AST 121 H (15-37) U/L ALT 38 (14-59) U/L Alkaline Phosphatase 98 (46-116) U/L Ammonia (11-32) umol/L Total Protein 7.1 (6.4-8.2) g/dL Albumin 2.2 L (3.4-5.0) g/dL Globulin 4.9 Albumin/Globulin Ratio 0.45 Amylase 28 (25-115) U/L Lipase 183 (73-393) U/L Urine Color (YELLOW) Urine Appearance (CLEAR) Urine pH (5.0-9.0) Ur Specific Plessis (1.005-1.030) Urine Protein (NEGATIVE) Urine Glucose (UA) (NEGATIVE) Urine Ketones (NEGATIVE) Urine Occult Blood (NEGATIVE) Urine Nitrite (NEGATIVE) Urine Bilirubin (NEGATIVE) Urine Urobilinogen (0.2-1.0) mg/dL Ur Leukocyte Esterase (NEGATIVE) Urine RBC /HPF Urine WBC (0-5/HPF) /HPF Ur Epithelial Cells (NOT SEEN) /HPF Amorphous Sediment (NOT SEEN) /HPF Urine Bacteria (0-FEW/HPF) /HPF Urine Mucus (NOT SEEN) /LPF Urine Opiates Screen (NEGATIVE) Ur Oxycodone Screen (NEGATIVE) Urine Methadone Screen (NEGATIVE) Ur Barbiturates Screen (NEGATIVE) U Tricyclic Antidepress (NEGATIVE) Ur Phencyclidine Scrn (NEGATIVE) Ur Amphetamine Screen (NEGATIVE) U Methamphetamines Scrn (NEGATIVE) Urine MDMA Screen (NEGATIVE) U Benzodiazepines Scrn (NEGATIVE) Urine Cocaine Screen (NEGATIVE) U Marijuana (THC) Screen (NEGATIVE) Ethyl Alcohol < 3 (0) mg/dL SARS CoV-2 RNA Rapid JOANA (NEGATIVE) 03/18/20 03/18/20 03/18/20 Range/Units 16:21 16:21 16:40 WBC (5.0-10.0) 10^3/uL RBC (4.2-5.4) 10^6/uL Hgb (12.0-16.0) g/dL Hct (37.0-47.0) % MCV (80-100) fL MCH (27.0-34.0) pg MCHC (33.0-35.0) g/dL Plt Count (150-450) 10^3/uL Neut % (Auto) (42.2-75.2) % Lymph % (Auto) (20.5-50.1) % [place] % (Auto) (2-8) % Eos % (Auto) (1.0-3.0) % Baso % (Auto) (0.0-1.0) % Sodium (136-145) mmol/L Potassium (3.5-5.1) mmol/L Chloride (98-107) mmol/L Carbon Dioxide (21-32) mmol/L Anion Gap (7-13) mEq/L BUN (7-18) mg/dL Creatinine (0.55-1.02) mg/dL Est Cr Clr Drug Dosing mL/min Estimated GFR (MDRD) BUN/Creatinine Ratio (No establ ref range) Glucose (74-99) mg/dL Lactic Acid (0.4-2.0) mmol/L Calcium (8.5-10.1) mg/dL Phosphorus (2.6-4.7) mg/dL Magnesium (1.8-2.4) mg/dL Total Bilirubin (0.2-1.0) mg/dL AST (15-37) U/L ALT (14-59) U/L Alkaline Phosphatase (46-116) U/L Ammonia 55 H (11-32) umol/L Total Protein (6.4-8.2) g/dL Albumin (3.4-5.0) g/dL Globulin Albumin/Globulin Ratio Amylase (25-115) U/L Lipase (73-393) U/L Urine Color Dark yellow (YELLOW) Urine Appearance Cloudy (CLEAR) Urine pH 6.0 (5.0-9.0) Ur Specific Pless[place] 1.025 (1.005-1.030) Urine Protein Trace H (NEGATIVE) Urine Glucose (UA) Negative (NEGATIVE) Urine Ketones Negative (NEGATIVE) Urine Occult Blood Small H (NEGATIVE) Urine Nitrite Negative (NEGATIVE) Urine Bilirubin Small H (NEGATIVE) Urine Urobilinogen 2.0 H (0.2-1.0) mg/dL Ur Leukocyte Esterase Small H (NEGATIVE) Urine RBC 10-20 H /HPF Urine WBC 50-75 H (0-5/HPF) /HPF Ur Epithelial Cells Rare (NOT SEEN) /HPF Amorphous Sediment Rare (NOT SEEN) /HPF Urine Bacteria Many H (0-FEW/HPF) /HPF Urine Mucus Few H (NOT SEEN) /LPF Urine Opiates Screen Negative (NEGATIVE) Ur Oxycodone Screen Negative (NEGATIVE) Urine Methadone Screen Negative (NEGATIVE) Ur Barbiturates Screen Negative (NEGATIVE) U Tricyclic Antidepress Negative (NEGATIVE) Ur Phencyclidine Scrn Negative (NEGATIVE) Ur Amphetamine Screen Negative (NEGATIVE) U Methamphetamines Scrn Negative (NEGATIVE) Urine MDMA Screen Negative (NEGATIVE) U Benzodiazepines Scrn Negative (NEGATIVE) Urine Cocaine Screen Negative (NEGATIVE) U Marijuana (THC) Screen Negative (NEGATIVE) Ethyl Alcohol (0) mg/dL SARS CoV-2 RNA Rapid JOANA (NEGATIVE) 03/18/20 Range/Units 17:59 WBC (5.0-10.0) 10^3/uL RBC (4.2-5.4) 10^6/uL Hgb (12.0-16.0) g/dL Hct (37.0-47.0) % MCV (80-100) fL MCH (27.0-34.0) pg MCHC (33.0-35.0) g/dL Plt Count (150-450) 10^3/uL Neut % (Auto) (42.2-75.2) % Lymph % (Auto) (20.5-50.1) % [place] % (Auto) (2-8) % Eos % (Auto) (1.0-3.0) % Baso % (Auto) (0.0-1.0) % Sodium (136-145) mmol/L Potassium (3.5-5.1) mmol/L Chloride (98-107) mmol/L Carbon Dioxide (21-32) mmol/L Anion Gap (7-13) mEq/L BUN (7-18) mg/dL Creatinine (0.55-1.02) mg/dL Est Cr Clr Drug Dosing mL/min Estimated GFR (MDRD) BUN/Creatinine Ratio (No establ ref range) Glucose (74-99) mg/dL Lactic Acid (0.4-2.0) mmol/L Calcium (8.5-10.1) mg/dL Phosphorus (2.6-4.7) mg/dL Magnesium (1.8-2.4) mg/dL Total Bilirubin (0.2-1.0) mg/dL AST (15-37) U/L ALT (14-59) U/L Alkaline Phosphatase (46-116) U/L Ammonia (11-32) umol/L Total Protein (6.4-8.2) g/dL Albumin (3.4-5.0) g/dL Globulin Albumin/Globulin Ratio Amylase (25-115) U/L Lipase (73-393) U/L Urine Color (YELLOW) Urine Appearance (CLEAR) Urine pH (5.0-9.0) Ur Specific Plessis (1.005-1.030) Urine Protein (NEGATIVE) Urine Glucose (UA) (NEGATIVE) Urine Ketones (NEGATIVE) Urine Occult Blood (NEGATIVE) Urine Nitrite (NEGATIVE) Urine Bilirubin (NEGATIVE) Urine Urobilinogen (0.2-1.0) mg/dL Ur Leukocyte Esterase (NEGATIVE) Urine RBC /HPF Urine WBC (0-5/HPF) /HPF Ur Epithelial Cells (NOT SEEN) /HPF Amorphous Sediment (NOT SEEN) /HPF Urine Bacteria (0-FEW/HPF) /HPF Urine Mucus (NOT SEEN) /LPF Urine Opiates Screen (NEGATIVE) Ur Oxycodone Screen (NEGATIVE) Urine Methadone Screen (NEGATIVE) Ur Barbiturates Screen (NEGATIVE) U Tricyclic Antidepress (NEGATIVE) Ur Phencyclidine Scrn (NEGATIVE) Ur Amphetamine Screen (NEGATIVE) U Methamphetamines Scrn (NEGATIVE) Urine MDMA Screen (NEGATIVE) U Benzodiazepines Scrn (NEGATIVE) Urine Cocaine Screen (NEGATIVE) U Marijuana (THC) Screen (NEGATIVE) Ethyl Alcohol (0) mg/dL SARS CoV-2 RNA Rapid JOANA Negative (NEGATIVE) Meds: Medications Generic Name Dose Route Start Last Admin Trade Name Freq PRN Reason Stop Dose Admin Potassium Chloride 20 meq/ 100 mls @ 50 mls/hr 03/18/20 17:07 03/18/20 17:36 Premix IV 03/18/20 19:06 50 mls/hr ONETIME ONE Administration Sodium Chloride 1,000 mls @ 125 mls/hr 03/18/20 17:10 03/18/20 17:29 Normal Saline IV 03/19/20 01:09 125 mls/hr ASDIRECTED ONE Administration Discontinued Medications Generic Name Dose Route Start Last Admin Trade Name Amanda PRN Reason Stop Dose Admin Azithromycin 1,000 mg 03/18/20 17:37 03/18/20 18:05 Zithromax PO 03/18/20 17:38 1,000 mg ONETIME ONE Administration Ceftriaxone Sodium 1 gm/ 0 gm 03/18/20 17:36 03/18/20 18:12 Lidocaine HCl 2.1 ml IM 03/18/20 17:37 1 inj ONETIME ONE Administration Hydromorphone HCl 1 mg 03/18/20 17:12 03/18/20 17:29 Dilaudid IVPUSH 03/18/20 17:13 1 mg ONETIME ONE Administration Magnesium Sulfate/Dextrose 1 gm in 100 mls @ 100 mls/hr 03/18/20 17:08 Magnesium Sulfate In D5w 100 Premix IV 03/18/20 18:07 ONETIME ONE Lidocaine HCl 1 ml 03/18/20 17:27 03/18/20 17:35 Xylocaine-Mpf 1% INJECT 03/18/20 17:28 1 ml ONETIME ONE Administration - Re-Assessments/Exams Free Text/Narrative Re-Assessment/Exam: 03/18/[address] Bo, will admit to inpatient for K, Mag, and rehydration. Departure - Departure Time of Disposition: 18:36 Disposition: Admitted As Inpatient 68 Condition: Good Clinical Impression: Hypokalemia, Hypomagnesemia - Discharge Information *PRESCRIPTION DRUG MONITORING PROGRAM REVIEWED*: Not Applicable *COPY OF PRESCRIPTION DRUG MONITORING REPORT IN PATIENT REBEKAH: Not Applicable Forms: ED Department Discharge Sepsis Event Note (ED) - Evaluation Sepsis Screening Result: No Definite Risk - Focused Exam Vital Signs: Vital Signs Temp Pulse Resp BP Pulse Ox 03/18/20 16:21 97.3 F 79 16 105/68 100 03/18/20 15:22 80 16 102/62 100 - My Orders Last 24 Hours: My Active Orders 03/18/20 16:18 CULTURE BLOOD [BC] Stat 03/18/20 16:21 CULTURE URINE [RM] Stat 03/18/20 17:07 Potassium Chloride [KCL 20 MEQ in Water 100 ML] 20 meq Premix Bag 1 bag IV ONETIME 03/18/20 17:10 Sodium Chloride 0.9% [Normal Saline] 1,000 ml IV ASDIRECTED 03/18/20 17:34 CHLAMYDIA AND GONORRHEA BY TMA Stat 03/18/20 18:33 Admission Diagnosis [ADT] Stat Admission Status [Patient Status] [ADT] Routine - Assessment/Plan Last 24 Hours: My Active Orders 03/18/20 16:18 CULTURE BLOOD [BC] Stat 03/18/20 16:21 CULTURE URINE [RM] Stat 03/18/20 17:07 Potassium Chloride [KCL 20 MEQ in Water 100 ML] 20 meq Premix Bag 1 bag IV ONETIME 03/18/20 17:10 Sodium Chloride 0.9% [Normal Saline] 1,000 ml IV ASDIRECTED 03/18/20 17:34 CHLAMYDIA AND GONORRHEA BY TMA Stat 03/18/20 18:33 Admission Diagnosis [ADT] Stat Admission Status [Patient Status] [ADT] Routine
[2020-03-18 16:43] LABS: ANION GAP 9.5 mEq/L (7-13); CHLORIDE,CL 96 mmol/L (98-107); SODIUM,NA 133 mmol/L (136-145)
[2020-03-18] MEDS ORDERED: Potassium Chloride 20 MEQ in Premix Bag 1 BAG IV ONE (17:07)
[2020-03-18] MEDS ORDERED: Magnesium Sulfate/D5W 1 GM/100 ML BAG IV ONE (17:08)
[2020-03-18] MEDS ORDERED: Sodium Chloride 0.9% 1,000 ML IV ONE (17:10)
[2020-03-18] MEDS ORDERED: HYDROmorphone 1 MG/ML Syringe IVPUSH ONE (17:12)
[2020-03-18] MEDS ORDERED: Lidocaine 1% 30 ML SDV INJECT ONE (17:27)
[2020-03-18] MEDS ORDERED: cefTRIAXone 1 GM, Lidocaine 1% 2.1 ML IM ONE ×2 (17:36)
[2020-03-18] MEDS ORDERED: Azithromycin 250 MG Tab PO ONE (17:37)
[2020-03-18] MEDS ORDERED: Ibuprofen 400 MG Tab PO PRN (19:56)
[2020-03-18] MEDS ORDERED: Ondansetron 4 MG/2 ML SDV IVPUSH PRN (19:56)
[2020-03-18] MEDS ORDERED: Sodium Chloride 0.9% 10 ML Syringe FLUSH PRN (19:56)
[2020-03-18] MEDS ORDERED: Potassium Chloride 10 MEQ in Premix Bag 1 BAG IV SCH (20:00)
--- NOTE | 2020-03-18 20:03 | PCM.HP ---
H&P History of Present Illness - General Date of Service: 03/18/20 Admit Problem/Dx: Admission Diagnosis/Problem Admission Diagnosis/Problem Hypokalemia Source of Information: Patient, Provider - History of Present Illness Initial Comments - Free Text/Narative: 44-year-old with a history alcoholic liver cirrhosis, portal hypertension, hepatitic encephalopathy. she had a prolonged hospitalization last summer with encephalopathy. Subsequently she was in rehabilitation for physical and occupational therapy. The patient the has developed nausea, vomiting, diarrhea in the past for 5 days. There is associated right upper quadrant pain, Pain is going across the upper abdomen. No black or bloody stool, no bloody vomiting. Feels tired but no confusion or hallucination. No recent alcohol intake She does not feel that she has more ascites than usual. She was unable to eat and drink due to the nausea and vomiting. she says she had a fever 101.4 a few days ago, has chills, headache. She has a history of kidney stones but she feels this pain is different. Abdominal Pain Score (Numeric/FACES): 6 - Related Data Allergies/Adverse Reactions: Allergies Allergy/AdvReac Type Severity Reaction Status Date / Time No Known Allergies Allergy Verified 03/18/20 15:30 Home Medications: Home Meds Furosemide [Lasix] 20 mg PO BID 03/18/20 [History] Lactulose [Cephulac] 15 ml PO BID 03/18/20 [History] Melatonin 3 mg PO BEDTIME PRN 03/18/20 [History] Midodrine 10 mg PO TID 03/18/20 [History] Multivit,Stress Formula/Zinc [Stress Formula with Zinc Tab] 1 tab PO DAILY 03/18/20 [History] Omeprazole 20 mg PO BIDAC 03/18/20 [History] Potassium Chloride [K-Tab ER] 20 meq PO DAILY 03/18/20 [History] Propranolol [Inderal] 20 mg PO BID 03/18/20 [History] Rifaximin [Xifaxan] 550 mg PO BID 03/18/20 [History] Sertraline [Zoloft] 150 mg PO DAILY 03/18/20 [History] Spironolactone 50 mg PO DAILY 03/18/20 [History] Thiamine [Vitamin B-1] 100 mg PO DAILY 03/18/20 [History] predniSONE [Prednisone] 20 mg PO DAILY 03/18/20 [History] traMADol [Ultram] 50 mg PO Q6H PRN 03/18/20 [History] traZODone HCl [Trazodone HCl] 50 mg PO BEDTIME 03/18/20 [History] Past Medical History HEENT History: Reports: None Cardiovascular History: Reports: None Respiratory History: Reports: None Gastrointestinal History: Reports: Cirrhosis, Hepatitis, Pancreatitis Genitourinary History: Reports: Renal 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 Musculoskeletal History: Reports: None Neurological History: Reports: Other (See Below) (Hepatic Encephalopathy) Psychiatric History: Reports: Anxiety, Depression Endocrine/Metabolic History: Reports: None Hematologic History: Reports: None Immunologic History: Reports: None Oncologic (Cancer) History: Reports: None Dermatologic History: Reports: None - Infectious Disease History Infectious Disease History: Reports: Hepatitis C - Past Surgical History Head Surgeries/Procedures: Reports: None Social & Family History - Family History Family Medical History: Noncontributory - Tobacco Use Tobacco Use Status *Q: Former Tobacco User Years of Tobacco use: 9 Packs/Tins Daily: 1.5 Used Tobacco, but Quit: Yes Month/Year Tobacco Last Used: May Second Hand Smoke Exposure: No - Caffeine Use Caffeine Use: Reports: None - Recreational Drug Use Recreational Drug Use: No - Living Situation & Occupation Living situation: Reports: with Significant Other Occupation: Disabled H&P Review of Systems - Review of Systems: Review Of Systems: See Below General: Reports: Fever, Chills Pulmonary: Denies: Shortness of Breath, Wheezing Cardiovascular: Denies: Chest Pain, Edema Gastrointestinal: Reports: Abdominal Pain, Diarrhea, Distension, Vomiting. Denies: Black Stool, Bloody Stool Genitourinary: Denies: Dysuria Neurological: Reports: Dizziness, Headache, Weakness. Denies: Confusion, Trouble Speaking Exam - Exam Exam: See Below - Vital Signs Vital Signs: Last Vital Signs Temp 97.3 F 03/18/20 16:21 Pulse 79 03/18/20 16:21 Resp 16 03/18/20 16:21 BP 105/68 03/18/20 16:21 Pulse Ox 100 03/18/20 16:21 Weight: 155 lb - Exam General: Alert, Oriented HEENT: Scleral Icterus Neck: Supple Lungs: Clear to Auscultation, Normal Respiratory Effort Cardiovascular: Regular Rate, Regular Rhythm GI/Abdominal Exam: Normal Bowel Sounds, Soft, Non-Tender, Distended (softly), Other (appears to have ascites). No: Guarding, Rigid, Rebound, Tender Extremities: No Pedal Edema Skin: Warm, Dry, Other (icterus) Neuro Extensive - Mental Status: Alert, Oriented x3 Psychiatric: Alert, Normal Affect, Normal Mood - Patient Data Lab Results Last 24 hrs: Laboratory Results - last 24 hr 03/18/20 03/18/20 03/18/20 Range/Units 16:18 16:18 16:18 WBC 5.8 (5.0-10.0) 10^3/uL RBC 2.93 L (4.2-5.4) 10^6/uL Hgb 9.2 L (12.0-16.0) g/dL Hct 28.3 L (37.0-47.0) % MCV 96.6 D (80-100) fL MCH 31.4 (27.0-34.0) pg MCHC 32.5 L (33.0-35.0) g/dL Plt Count 90 L (150-450) 10^3/uL Neut % (Auto) 69.3 (42.2-75.2) % Lymph % (Auto) 21.8 (20.5-50.1) % [facility] % (Auto) 7.3 (2-8) % Eos % (Auto) 1.4 (1.0-3.0) % Baso % (Auto) 0.2 (0.0-1.0) % Sodium 133 L (136-145) mmol/L Potassium 2.5 L (3.5-5.1) mmol/L Chloride 96 L (98-107) mmol/L Carbon Dioxide 30 (21-32) mmol/L Anion Gap 9.5 (7-13) mEq/L BUN 8 (7-18) mg/dL Creatinine 1.25 H (0.55-1.02) mg/dL Est Cr Clr Drug Dosing 50.63 mL/min Estimated GFR (MDRD) 47 BUN/Creatinine Ratio 6.4 (No establ ref range) Glucose 193 H (74-99) mg/dL Lactic Acid 2.7 H* (0.4-2.0) mmol/L Calcium 8.0 L (8.5-10.1) mg/dL Phosphorus 3.3 (2.6-4.7) mg/dL Magnesium 1.4 L (1.8-2.4) mg/dL Total Bilirubin 2.7 H (0.2-1.0) mg/dL AST 121 H (15-37) U/L ALT 38 (14-59) U/L Alkaline Phosphatase 98 (46-116) U/L Ammonia (11-32) umol/L Total Protein 7.1 (6.4-8.2) g/dL Albumin 2.2 L (3.4-5.0) g/dL Globulin 4.9 Albumin/Globulin Ratio 0.45 Amylase 28 (25-115) U/L Lipase 183 (73-393) U/L Urine Color (YELLOW) Urine Appearance (CLEAR) Urine pH (5.0-9.0) Ur Specific [place] (1.005-1.030) Urine Protein (NEGATIVE) Urine Glucose (UA) (NEGATIVE) Urine Ketones (NEGATIVE) Urine Occult Blood (NEGATIVE) Urine Nitrite (NEGATIVE) Urine Bilirubin (NEGATIVE) Urine Urobilinogen (0.2-1.0) mg/dL Ur Leukocyte Esterase (NEGATIVE) Urine RBC /HPF Urine WBC (0-5/HPF) /HPF Ur Epithelial Cells (NOT SEEN) /HPF Amorphous Sediment (NOT SEEN) /HPF Urine Bacteria (0-FEW/HPF) /HPF Urine Mucus (NOT SEEN) /LPF Urine HCG, Qual Urine Opiates Screen (NEGATIVE) Ur Oxycodone Screen (NEGATIVE) Urine Methadone Screen (NEGATIVE) Ur Barbiturates Screen (NEGATIVE) U Tricyclic Antidepress (NEGATIVE) Ur Phencyclidine Scrn (NEGATIVE) Ur Amphetamine Screen (NEGATIVE) U Methamphetamines Scrn (NEGATIVE) Urine MDMA Screen (NEGATIVE) U Benzodiazepines Scrn (NEGATIVE) Urine Cocaine Screen (NEGATIVE) U Marijuana (THC) Screen (NEGATIVE) Ethyl Alcohol < 3 (0) mg/dL SARS CoV-2 RNA Rapid JOANA (NEGATIVE) 03/18/20 03/18/20 03/18/20 Range/Units 16:21 16:21 16:21 WBC (5.0-10.0) 10^3/uL RBC (4.2-5.4) 10^6/uL Hgb (12.0-16.0) g/dL Hct (37.0-47.0) % MCV (80-100) fL MCH (27.0-34.0) pg MCHC (33.0-35.0) g/dL Plt Count (150-450) 10^3/uL Neut % (Auto) (42.2-75.2) % Lymph % (Auto) (20.5-50.1) % [facility] % (Auto) (2-8) % Eos % (Auto) (1.0-3.0) % Baso % (Auto) (0.0-1.0) % Sodium (136-145) mmol/L Potassium (3.5-5.1) mmol/L Chloride (98-107) mmol/L Carbon Dioxide (21-32) mmol/L Anion Gap (7-13) mEq/L BUN (7-18) mg/dL Creatinine (0.55-1.02) mg/dL Est Cr Clr Drug Dosing mL/min Estimated GFR (MDRD) BUN/Creatinine Ratio (No establ ref range) Glucose (74-99) mg/dL Lactic Acid (0.4-2.0) mmol/L Calcium (8.5-10.1) mg/dL Phosphorus (2.6-4.7) mg/dL Magnesium (1.8-2.4) mg/dL Total Bilirubin (0.2-1.0) mg/dL AST (15-37) U/L ALT (14-59) U/L Alkaline Phosphatase (46-116) U/L Ammonia (11-32) umol/L Total Protein (6.4-8.2) g/dL Albumin (3.4-5.0) g/dL Globulin Albumin/Globulin Ratio Amylase (25-115) U/L Lipase (73-393) U/L Urine Color Dark yellow (YELLOW) Urine Appearance Cloudy (CLEAR) Urine pH 6.0 (5.0-9.0) Ur Specific [place] 1.025 (1.005-1.030) Urine Protein Trace H (NEGATIVE) Urine Glucose (UA) Negative (NEGATIVE) Urine Ketones Negative (NEGATIVE) Urine Occult Blood Small H (NEGATIVE) Urine Nitrite Negative (NEGATIVE) Urine Bilirubin Small H (NEGATIVE) Urine Urobilinogen 2.0 H (0.2-1.0) mg/dL Ur Leukocyte Esterase Small H (NEGATIVE) Urine RBC 10-20 H /HPF Urine WBC 50-75 H (0-5/HPF) /HPF Ur Epithelial Cells Rare (NOT SEEN) /HPF Amorphous Sediment Rare (NOT SEEN) /HPF Urine Bacteria Many H (0-FEW/HPF) /HPF Urine Mucus Few H (NOT SEEN) /LPF Urine HCG, Qual Negative Urine Opiates Screen Negative (NEGATIVE) Ur Oxycodone Screen Negative (NEGATIVE) Urine Methadone Screen Negative (NEGATIVE) Ur Barbiturates Screen Negative (NEGATIVE) U Tricyclic Antidepress Negative (NEGATIVE) Ur Phencyclidine Scrn Negative (NEGATIVE) Ur Amphetamine Screen Negative (NEGATIVE) U Methamphetamines Scrn Negative (NEGATIVE) Urine MDMA Screen Negative (NEGATIVE) U Benzodiazepines Scrn Negative (NEGATIVE) Urine Cocaine Screen Negative (NEGATIVE) U Marijuana (THC) Screen Negative (NEGATIVE) Ethyl Alcohol (0) mg/dL SARS CoV-2 RNA Rapid JOANA (NEGATIVE) 03/18/20 03/18/20 Range/Units 16:40 17:59 WBC (5.0-10.0) 10^3/uL RBC (4.2-5.4) 10^6/uL Hgb (12.0-16.0) g/dL Hct (37.0-47.0) % MCV (80-100) fL MCH (27.0-34.0) pg MCHC (33.0-35.0) g/dL Plt Count (150-450) 10^3/uL Neut % (Auto) (42.2-75.2) % Lymph % (Auto) (20.5-50.1) % [facility] [place] % (Auto) (2-8) % Eos % (Auto) (1.0-3.0) % Baso % (Auto) (0.0-1.0) % Sodium (136-145) mmol/L Potassium (3.5-5.1) mmol/L Chloride (98-107) mmol/L Carbon Dioxide (21-32) mmol/L Anion Gap (7-13) mEq/L BUN (7-18) mg/dL Creatinine (0.55-1.02) mg/dL Est Cr Clr Drug Dosing mL/min Estimated GFR (MDRD) BUN/Creatinine Ratio (No establ ref range) Glucose (74-99) mg/dL Lactic Acid (0.4-2.0) mmol/L Calcium (8.5-10.1) mg/dL Phosphorus (2.6-4.7) mg/dL Magnesium (1.8-2.4) mg/dL Total Bilirubin (0.2-1.0) mg/dL AST (15-37) U/L ALT (14-59) U/L Alkaline Phosphatase (46-116) U/L Ammonia 55 H (11-32) umol/L Total Protein (6.4-8.2) g/dL Albumin (3.4-5.0) g/dL Globulin Albumin/Globulin Ratio Amylase (25-115) U/L Lipase (73-393) U/L Urine Color (YELLOW) Urine Appearance (CLEAR) Urine pH (5.0-9.0) Ur Specific [place] (1.005-1.030) Urine Protein (NEGATIVE) Urine Glucose (UA) (NEGATIVE) Urine Ketones (NEGATIVE) Urine Occult Blood (NEGATIVE) Urine Nitrite (NEGATIVE) Urine Bilirubin (NEGATIVE) Urine Urobilinogen (0.2-1.0) mg/dL Ur Leukocyte Esterase (NEGATIVE) Urine RBC /HPF Urine WBC (0-5/HPF) /HPF Ur Epithelial Cells (NOT SEEN) /HPF Amorphous Sediment (NOT SEEN) /HPF Urine Bacteria (0-FEW/HPF) /HPF Urine Mucus (NOT SEEN) /LPF Urine HCG, Qual Urine Opiates Screen (NEGATIVE) Ur Oxycodone Screen (NEGATIVE) Urine Methadone Screen (NEGATIVE) Ur Barbiturates Screen (NEGATIVE) U Tricyclic Antidepress (NEGATIVE) Ur Phencyclidine Scrn (NEGATIVE) Ur Amphetamine Screen (NEGATIVE) U Methamphetamines Scrn (NEGATIVE) Urine MDMA Screen (NEGATIVE) U Benzodiazepines Scrn (NEGATIVE) Urine Cocaine Screen (NEGATIVE) U Marijuana (THC) Screen (NEGATIVE) Ethyl Alcohol (0) mg/dL SARS CoV-2 RNA Rapid JOANA Negative (NEGATIVE) Result Diagrams: 03/18/20 16:18 03/18/20 16:18 - Problem List (1) Abdominal pain SNOMED Code(s): 29405824 ICD Code: R10.9 - UNSPECIFIED ABDOMINAL PAIN Status: Acute Current Visit: No Qualifiers: Abdominal location: epigastric Qualified Code(s): R10.13 - Epigastric pain (2) Hepatic encephalopathy SNOMED Code(s): 61294563 ICD Code: K72.90 - HEPATIC FAILURE, UNSPECIFIED WITHOUT COMA Status: Acute Current Visit: No (3) Hypokalemia SNOMED Code(s): 42166683 ICD Code: E87.6 - HYPOKALEMIA Status: Acute Current Visit: No (4) Hypomagnesemia SNOMED Code(s): 788604101 ICD Code: E83.42 - HYPOMAGNESEMIA Status: Acute Current Visit: No Problem List Initiated/Reviewed/Updated: Yes Orders Last 24hrs: Active Orders 24 hr Category Date Time Status Admission Diagnosis [ADT] Stat ADT 03/18/20 18:33 Ordered Admission Status [Patient Status] [ADT] Routine ADT 03/18/20 18:33 Active Antiembolic Devices [RC] PER UNIT ROUTINE Care 03/18/20 19:57 Ordered Oxygen Therapy [RC] PRN Care 03/18/20 19:56 Ordered Peripheral IV Care [RC] . DIRECTED Care 03/18/20 19:57 Ordered Up With Assistance [RC] ASDIRECTED Care 03/18/20 19:56 Ordered VTE/DVT Education [RC] PER UNIT ROUTINE Care 03/18/20 19:56 Ordered Vital Signs [RC] Q4H Care 03/18/20 19:56 Ordered Clear Liquid Diet [DIET] Diet 03/19/20 Breakfast Ordered Abdomen Pelvis wo Cont [CT] Routine Exams 03/18/20 19:50 Stop Req Abdomen Pelvis wo Cont [CT] Routine Exams 03/18/20 19:51 Ordered AMMONIA VENOUS [CHEM] AM Lab 03/19/20 05:11 Ordered BASIC METABOLIC PANEL,BMP [CHEM] AM Lab 03/19/20 05:15 Ordered CBC WITH AUTO DIFF [HEME] AM Lab 03/19/20 05:15 Ordered CHLAMYDIA AND GONORRHEA BY TMA Stat Lab 03/18/20 16:21 Received CULTURE BLOOD [BC] Stat Lab 03/18/20 16:18 Received CULTURE URINE [RM] Stat Lab 03/18/20 16:21 Received HEPATIC FUNCTION PANEL,HFP [CHEM] AM Lab 03/19/20 05:11 Ordered LACTIC ACID [CHEM] AM Lab 03/19/20 05:11 Ordered MAGNESIUM [CHEM] AM Lab 03/19/20 05:11 Ordered PHOSPHORUS [CHEM] AM Lab 03/19/20 05:11 Ordered Furosemide [Lasix] Med 03/18/20 21:00 Ordered 20 mg PO BID Heparin Sodium Med 03/18/20 22:00 Ordered 5,000 units SUBCUT Q8HR Ibuprofen [Motrin] Med 03/18/20 19:56 Ordered 400 mg PO Q6H PRN Lactulose Med 03/18/20 21:00 Ordered 15 ml PO BID Magnesium Oxide Med 03/19/20 08:00 Ordered 500 mg PO BIDM Midodrine [Midodrine] Med 03/18/20 21:00 Ordered 10 mg PO TID Multivit,Stress Formula/Zinc [Stress Formula with Zinc Med 03/19/20 09:00 Ordered Tab] 1 tab PO DAILY Omeprazole Med 03/19/20 06:00 Ordered 20 mg PO BIDAC Ondansetron [Zofran ODT] Med 03/18/20 19:56 Ordered 4 mg PO Q6H PRN Ondansetron [Zofran] Med 03/18/20 19:56 Ordered 4 mg IVPUSH Q6H PRN Potassium Chloride [K-Tab ER] Med 03/19/20 09:00 Ordered 20 meq PO DAILY Potassium Chloride [KCl 10 MEQ in Water 100 ML] 10 meq Med 03/18/20 20:00 Ordered Premix Bag 1 bag IV Q2H Propranolol [Inderal] Med 03/18/20 21:00 Ordered 20 mg PO BID Rifaximin [Xifaxan] Med 03/18/20 21:00 Ordered 550 mg PO BID Sertraline [Zoloft] Med 03/19/20 09:00 Ordered 150 mg PO DAILY Sodium Chloride 0.9% [Normal Saline] 1,000 ml Med 03/18/20 17:10 Active IV ASDIRECTED Sodium Chloride 0.9% [Saline Flush] Med 03/18/20 19:56 Ordered 10 ml FLUSH ASDIRECTED PRN Sodium Chloride 0.9% with KCl 20 mEq @ 75 mL/Hr (1000 Med 03/18/20 20:00 Ordered mL) NS + KCl 20mEq/L [Normal Saline with 20 mEq KCl] 1,000 ml IV ASDIRECTED Spironolactone [Spironolactone] Med 03/19/20 09:00 Ordered 50 mg PO DAILY Thiamine [Vitamin B-1] Med 03/19/20 09:00 Ordered 100 mg PO DAILY predniSONE Med 03/19/20 09:00 Ordered 20 mg PO DAILY traMADol [Ultram] Med 11/09/20 19:46 Ordered 50 mg PO Q6H PRN traZODone Med 03/18/20 19:46 Ordered 50 mg PO BEDTIME PRN Antiembolic Hose [OM.PC] Per Unit Routine Oth 03/18/20 19:56 Ordered Peripheral IV Insertion Adult [OM.PC] Routine Oth 03/18/20 19:56 Ordered Resuscitation Status Routine Resus Stat 03/18/20 19:56 Ordered Medication Orders Furosemide (Lasix) 20 mg PO BID [facility] Heparin Sodium (Porcine) (Heparin Sodium) 5,000 units SUBCUT Q8HR [facility] Sodium Chloride (Normal Saline) 1,000 mls @ 125 mls/hr IV ASDIRECTED ONE Stop: 03/19/20 01:09 Last Admin: 03/18/20 17:29 Dose: 125 mls/hr Documented by: ADELA Potassium Chloride 10 meq/ (Premix) 100 mls @ 50 mls/hr IV Q2H JOHANA Stop: 03/19/20 03:59 Potassium Chloride/Sodium Chloride (Normal Saline With 20 Meq Kcl) 1,000 mls @ 75 mls/hr IV ASDIRECTED JOHANA Ibuprofen (Motrin) 400 mg PO Q6H PRN PRN Reason: Pain (mild 1-3) Lactulose (Cephulac) 15 gm PO BID JOHANA Magnesium Oxide (Magnesium Oxide) 500 mg PO BIDM [facility] Stop: 03/19/20 18:01 Midodrine (Midodrine) 10 mg PO TID [facility] Multivitamins/Minerals (Vitamins And Minerals) 1 tab PO DAILY [facility] Omeprazole (Omeprazole) 20 mg PO BIDAC [facility] Ondansetron HCl (Zofran Odt) 4 mg PO Q6H PRN PRN Reason: nausea, able to take PO Ondansetron HCl (Zofran) 4 mg IVPUSH Q6H PRN PRN Reason: Nausea/Vomiting Potassium Chloride (Klor-Con 10) 20 meq PO DAILY [facility] Prednisone (Prednisone) 20 mg PO DAILY [facility] Propranolol HCl (Inderal) 20 mg PO BID [facility] Rifaximin (Xifaxan) 550 mg PO BID [facility] Sertraline HCl (Zoloft) 150 mg PO DAILY [facility] Sodium Chloride (Saline Flush) 10 ml FLUSH ASDIRECTED PRN PRN Reason: Keep Vein Open Spironolactone (Aldactone) 50 mg PO DAILY [facility] Thiamine HCl (Vitamin B-1) 100 mg PO DAILY [facility] Tramadol HCl (Ultram) 50 mg PO Q6H PRN PRN Reason: moderate to severe pain Trazodone HCl (Trazodone) 50 mg PO BEDTIME PRN PRN Reason: for sleep Assessment/Plan Comment:: 44-year-old with a history of hepatitic encephalopathy, portal hypertension presented with abdominal pain, nausea. She was noted to have severe hypokalemia in the emergency room Abdominal pain Associated with nausea, vomiting The patient has diarrhea but that might relate to lactulose Has a history of kidney stones but she feels this is different type of pain Check urine preg Obtain CT of the abdomen, pelvis to evaluate for bowel obstruction Lactic acidosis I do not think this represents sepsis Likely due to chronic liver disease Recheck lactic acid in the morning Electrolyte abnormalities including severe hypokalemia, low magnesium, hyponatremia We will replace with oral magnesium, IV potassium Recheck in the morning Give gentle IV hydration, resume Lasix and spironolactone from tomorrow Might need to increase his spironolactone if remains hypokalemic Chronic liver cirrhosis, portal hypertension, Appear to have ascites I do not think the patient has bacterial peritonitis Well monitor Has been on midodrine along with propranolol - try to balance the two meds Continue lactulose, rifaximin Urinary tract infection Obtain urine culture Given azithromycin in the emergency room Start empirical ceftriaxone DVT prophylaxis with subcutaneous heparin
[2020-03-18] MEDS: Ondansetron 4 MG Tab.DIS PO PRN (21:03)
[2020-03-18] MEDS: Potassium Chloride 10 MEQ in Premix Bag 1 BAG IV SCH ×2 (21:30→23:38)
[2020-03-18] MEDS: traMADol 50 MG Tab PO PRN (21:40)
[2020-03-18] MEDS: Rifaximin 550 MG Tab PO SCH (21:40)
[2020-03-18] MEDS: Midodrine 2.5 MG Tab PO SCH (21:41)
[2020-03-18] MEDS: Propranolol 10 MG Tab PO SCH (21:41)
[2020-03-18] MEDS: Lactulose Soln 10 GM/15 ML 30 ML UD Cup PO SCH (21:42)
[2020-03-18] MEDS: traZODone 50 MG Tab PO PRN (21:42)
[2020-03-18] MEDS: Furosemide 20 MG Tab PO SCH (21:42)
--- NOTE | 2020-03-18 22:30 | CT ---
PROCEDURE INFORMATION: Exam: CT Abdomen And Pelvis Without Contrast Exam date and time: 03/18/2020 8:18 PM Age: 44 years old Clinical indication: Abdominal pain; Other: Abd. Pain; Additional info: Abd pain TECHNIQUE: Imaging protocol: Computed tomography of the abdomen and pelvis without contrast. Radiation optimization: All CT scans at this facility use at least one of these dose optimization techniques: automated exposure control; mA and/or kV adjustment per patient size (includes targeted exams where dose is matched to clinical indication); or iterative reconstruction. COMPARISON: CT Abdomen Pelvis w Cont 01/04/2019 2:31 PM , The report from that study is not available. FINDINGS: Lungs: There is subsegmental right middle lobe atelectasis.. Liver: The liver appears normal for a noncontrast study. Gallbladder and bile ducts: The gallbladder is normal. Pancreas: The pancreas is normal. Spleen: There is moderate nonspecific splenomegaly (16 cm). Adrenal glands: The adrenal glands are normal. Kidneys and ureters: There are multiple bilateral renal collecting system calcifications. There is no evidence of hydronephrosis. Stomach and bowel: There unchanged short gastric and gastroesophageal varices. The GI tract has normal course, caliber and morphology. Appendix: A normal appendix is identified. Intraperitoneal space: There is a small amount of free fluid present. There is no evidence of intraperitoneal / pathologic air collections. Vasculature: There are numerous benign phleboliths in the pelvis. The abdominal aorta, IVC, and their branches are unremarkable. Lymph nodes: There is no evidence of lymphadenopathy. Urinary bladder: The bladder is decompressed. Reproductive: The uterus is mildly enlarged. Bones/joints: The spine, sacroiliac joints, and hip joints are normal. Soft tissues: There is a fat-containing ventral hernia. IMPRESSION: 1. New, mild-moderate ascites. 2. Moderate splenomegaly. 3. Gastroesophageal in short gastric varices, suspicious for portal venous hypertension. 4. No specific signs of cirrhosis.
[2020-03-19] MEDS: Potassium Chloride 10 MEQ in Premix Bag 1 BAG IV SCH ×7 (01:40→22:31)
[2020-03-19] MEDS ORDERED: NS + KCl 20mEq/L 1,000 ML IV SCH (04:00)
[2020-03-19] MEDS: fentaNYL 100 MCG/2 ML SDV IVPUSH PRN ×2 (04:25→21:26)
[2020-03-19] MEDS: Furosemide 20 MG Tab PO SCH ×2 (08:13→21:00)
[2020-03-19] MEDS: Midodrine 2.5 MG Tab PO SCH ×3 (08:13→21:01)
[2020-03-19] MEDS: Omeprazole 20 MG Cap.CR PO SCH ×2 (08:13→15:42)
[2020-03-19] MEDS: Sertraline 50 MG Tab PO SCH (08:14)
[2020-03-19] MEDS: Multivitamins, Therapeutic with Minerals Tab PO SCH (08:14)
[2020-03-19] MEDS: Ondansetron 4 MG Tab.DIS PO PRN (08:14)
[2020-03-19] MEDS: Rifaximin 550 MG Tab PO SCH ×2 (08:14→21:01)
[2020-03-19] MEDS: Thiamine 100 MG Tab PO SCH (08:14)
[2020-03-19] MEDS: Potassium Chloride 10 MEQ Tab.ER PO SCH (08:14)
[2020-03-19] MEDS: predniSONE 20 MG Tab PO SCH (08:14)
[2020-03-19] MEDS: Propranolol 10 MG Tab PO SCH ×2 (08:16→21:02)
[2020-03-19] MEDS: Lactulose Soln 10 GM/15 ML 30 ML UD Cup PO SCH ×2 (08:16→20:58)
[2020-03-19] MEDS ORDERED: Spironolactone 25 MG Tab PO SCH (09:00)
[2020-03-19] MEDS: Heparin Sodium 5,000 Units/ML Vial SUBCUT SCH ×3 (10:08→21:10)
--- NOTE | 2020-03-19 11:50 | PCM.PN ---
- General Info Date of Service: 03/19/20 Admission Dx/Problem (Free Text): Admission Diagnosis/Problem Admission Diagnosis/Problem Hypokalemia Subjective Update: yesterday had a large supper that the she vomited. This morning tolerating clear liquid diet Abdominal pain is better although required IV fentanyl during the night. No associated fever. She is feeling better. Has been receiving IV fluids and IV potassium supplements. Functional Status: Reports: Pain Controlled. Denies: Tolerating Diet - Review of Systems General: Reports: Weakness. Denies: Fever Pulmonary: Denies: Shortness of Breath (Improved) Cardiovascular: Denies: Chest Pain Gastrointestinal: Reports: Abdominal Pain (right upper qant pain has improved) Genitourinary: Reports: Dysuria Neurological: Denies: Confusion - Patient Data Vitals - Most Recent: Last Vital Signs Temp 97.2 F 03/19/20 08:00 Pulse 82 03/19/20 08:00 Resp 20 03/19/20 08:00 BP 91/52 L 03/19/20 08:00 Pulse Ox 96 03/19/20 08:00 Weight - Most Recent: 155 lb I&O - Last 24 Hours: Intake & Output 03/18/20 03/19/20 03/19/20 22:59 06:59 14:59 Intake Total 100 1700 450 Output Total 400 Balance -300 1700 450 Lab Results Last 24 Hours: Laboratory Results - last 24 hr 03/18/20 03/18/20 03/18/20 Range/Units 16:18 16:18 16:18 WBC 5.8 (5.0-10.0) 10^3/uL RBC 2.93 L (4.2-5.4) 10^6/uL Hgb 9.2 L (12.0-16.0) g/dL Hct 28.3 L (37.0-47.0) % MCV 96.6 D (80-100) fL MCH 31.4 (27.0-34.0) pg MCHC 32.5 L (33.0-35.0) g/dL Plt Count 90 L (150-450) 10^3/uL Neut % (Auto) 69.3 (42.2-75.2) % Lymph % (Auto) 21.8 (20.5-50.1) % [place] % (Auto) 7.3 (2-8) % Eos % (Auto) 1.4 (1.0-3.0) % Baso % (Auto) 0.2 (0.0-1.0) % Sodium 133 L (136-145) mmol/L Potassium 2.5 L (3.5-5.1) mmol/L Chloride 96 L (98-107) mmol/L Carbon Dioxide 30 (21-32) mmol/L Anion Gap 9.5 (7-13) mEq/L BUN 8 (7-18) mg/dL Creatinine 1.25 H (0.55-1.02) mg/dL Est Cr Clr Drug Dosing 50.63 mL/min Estimated GFR (MDRD) 47 BUN/Creatinine Ratio 6.4 (No establ ref range) Glucose 193 H (74-99) mg/dL Lactic Acid 2.7 H* (0.4-2.0) mmol/L Calcium 8.0 L (8.5-10.1) mg/dL Phosphorus 3.3 (2.6-4.7) mg/dL Magnesium 1.4 L (1.8-2.4) mg/dL Total Bilirubin 2.7 H (0.2-1.0) mg/dL Direct Bilirubin (0.0-0.2) mg/dL Indirect Bilirubin AST 121 H (15-37) U/L ALT 38 (14-59) U/L Alkaline Phosphatase 98 (46-116) U/L Ammonia (11-32) umol/L Total Protein 7.1 (6.4-8.2) g/dL Albumin 2.2 L (3.4-5.0) g/dL Globulin 4.9 Albumin/Globulin Ratio 0.45 Amylase 28 (25-115) U/L Lipase 183 (73-393) U/L Urine Color (YELLOW) Urine Appearance (CLEAR) Urine pH (5.0-9.0) Ur Specific Jeff (1.005-1.030) Urine Protein (NEGATIVE) Urine Glucose (UA) (NEGATIVE) Urine Ketones (NEGATIVE) Urine Occult Blood (NEGATIVE) Urine Nitrite (NEGATIVE) Urine Bilirubin (NEGATIVE) Urine Urobilinogen (0.2-1.0) mg/dL Ur Leukocyte Esterase (NEGATIVE) Urine RBC /HPF Urine WBC (0-5/HPF) /HPF Ur Epithelial Cells (NOT SEEN) /HPF Amorphous Sediment (NOT SEEN) /HPF Urine Bacteria (0-FEW/HPF) /HPF Urine Mucus (NOT SEEN) /LPF Urine HCG, Qual Urine Opiates Screen (NEGATIVE) Ur Oxycodone Screen (NEGATIVE) Urine Methadone Screen (NEGATIVE) Ur Barbiturates Screen (NEGATIVE) U Tricyclic Antidepress (NEGATIVE) Ur Phencyclidine Scrn (NEGATIVE) Ur Amphetamine Screen (NEGATIVE) U Methamphetamines Scrn (NEGATIVE) Urine MDMA Screen (NEGATIVE) U Benzodiazepines Scrn (NEGATIVE) Urine Cocaine Screen (NEGATIVE) U Marijuana (THC) Screen (NEGATIVE) Ethyl Alcohol < 3 (0) mg/dL SARS CoV-2 RNA Rapid JOANA (NEGATIVE) 03/18/20 03/18/20 03/18/20 Range/Units 16:21 16:21 16:21 WBC (5.0-10.0) 10^3/uL RBC (4.2-5.4) 10^6/uL Hgb (12.0-16.0) g/dL Hct (37.0-47.0) % MCV (80-100) fL MCH (27.0-34.0) pg MCHC (33.0-35.0) g/dL Plt Count (150-450) 10^3/uL Neut % (Auto) (42.2-75.2) % Lymph % (Auto) (20.5-50.1) % [place] % (Auto) (2-8) % Eos % (Auto) (1.0-3.0) % Baso % (Auto) (0.0-1.0) % Sodium (136-145) mmol/L Potassium (3.5-5.1) mmol/L Chloride (98-107) mmol/L Carbon Dioxide (21-32) mmol/L Anion Gap (7-13) mEq/L BUN (7-18) mg/dL Creatinine (0.55-1.02) mg/dL Est Cr Clr Drug Dosing mL/min Estimated GFR (MDRD) BUN/Creatinine Ratio (No establ ref range) Glucose (74-99) mg/dL Lactic Acid (0.4-2.0) mmol/L Calcium (8.5-10.1) mg/dL Phosphorus (2.6-4.7) mg/dL Magnesium (1.8-2.4) mg/dL Total Bilirubin (0.2-1.0) mg/dL Direct Bilirubin (0.0-0.2) mg/dL Indirect Bilirubin AST (15-37) U/L ALT (14-59) U/L Alkaline Phosphatase (46-116) U/L Ammonia (11-32) umol/L Total Protein (6.4-8.2) g/dL Albumin (3.4-5.0) g/dL Globulin Albumin/Globulin Ratio Amylase (25-115) U/L Lipase (73-393) U/L Urine Color Dark yellow (YELLOW) Urine Appearance Cloudy (CLEAR) Urine pH 6.0 (5.0-9.0) Ur Specific Jeff 1.025 (1.005-1.030) Urine Protein Trace H (NEGATIVE) Urine Glucose (UA) Negative (NEGATIVE) Urine Ketones Negative (NEGATIVE) Urine Occult Blood Small H (NEGATIVE) Urine Nitrite Negative (NEGATIVE) Urine Bilirubin Small H (NEGATIVE) Urine Urobilinogen 2.0 H (0.2-1.0) mg/dL Ur Leukocyte Esterase Small H (NEGATIVE) Urine RBC 10-20 H /HPF Urine WBC 50-75 H (0-5/HPF) /HPF Ur Epithelial Cells Rare (NOT SEEN) /HPF Amorphous Sediment Rare (NOT SEEN) /HPF Urine Bacteria Many H (0-FEW/HPF) /HPF Urine Mucus Few H (NOT SEEN) /LPF Urine HCG, Qual Negative Urine Opiates Screen Negative (NEGATIVE) Ur Oxycodone Screen Negative (NEGATIVE) Urine Methadone Screen Negative (NEGATIVE) Ur Barbiturates Screen Negative (NEGATIVE) U Tricyclic Antidepress Negative (NEGATIVE) Ur Phencyclidine Scrn Negative (NEGATIVE) Ur Amphetamine Screen Negative (NEGATIVE) U Methamphetamines Scrn Negative (NEGATIVE) Urine MDMA Screen Negative (NEGATIVE) U Benzodiazepines Scrn Negative (NEGATIVE) Urine Cocaine Screen Negative (NEGATIVE) U Marijuana (THC) Screen Negative (NEGATIVE) Ethyl Alcohol (0) mg/dL SARS CoV-2 RNA Rapid JOANA (NEGATIVE) 03/18/20 03/18/20 03/19/20 Range/Units 16:40 17:59 05:52 WBC (5.0-10.0) 10^3/uL RBC (4.2-5.4) 10^6/uL Hgb (12.0-16.0) g/dL Hct (37.0-47.0) % MCV (80-100) fL MCH (27.0-34.0) pg MCHC (33.0-35.0) g/dL Plt Count (150-450) 10^3/uL Neut % (Auto) (42.2-75.2) % Lymph % (Auto) (20.5-50.1) % [place] % (Auto) (2-8) % Eos % (Auto) (1.0-3.0) % Baso % (Auto) (0.0-1.0) % Sodium 136 (136-145) mmol/L Potassium 3.0 L (3.5-5.1) mmol/L Chloride 102 (98-107) mmol/L Carbon Dioxide 27 (21-32) mmol/L Anion Gap 10.0 (7-13) mEq/L BUN 7 (7-18) mg/dL Creatinine 1.15 H (0.55-1.02) mg/dL Est Cr Clr Drug Dosing 55.03 mL/min Estimated GFR (MDRD) 52 BUN/Creatinine Ratio (No establ ref range) Glucose 109 H (74-99) mg/dL Lactic Acid (0.4-2.0) mmol/L Calcium 7.4 L (8.5-10.1) mg/dL Phosphorus 2.6 (2.6-4.7) mg/dL Magnesium 1.6 L (1.8-2.4) mg/dL Total Bilirubin 1.8 H (0.2-1.0) mg/dL Direct Bilirubin 1.2 H (0.0-0.2) mg/dL Indirect Bilirubin 0.6 AST 98 H (15-37) U/L ALT 32 (14-59) U/L Alkaline Phosphatase 71 (46-116) U/L Ammonia 55 H (11-32) umol/L Total Protein 5.7 L (6.4-8.2) g/dL Albumin 1.8 L (3.4-5.0) g/dL Globulin 3.9 Albumin/Globulin Ratio 0.46 Amylase (25-115) U/L Lipase (73-393) U/L Urine Color (YELLOW) Urine Appearance (CLEAR) Urine pH (5.0-9.0) Ur Specific Jeff (1.005-1.030) Urine Protein (NEGATIVE) Urine Glucose (UA) (NEGATIVE) Urine Ketones (NEGATIVE) Urine Occult Blood (NEGATIVE) Urine Nitrite (NEGATIVE) Urine Bilirubin (NEGATIVE) Urine Urobilinogen (0.2-1.0) mg/dL Ur Leukocyte Esterase (NEGATIVE) Urine RBC /HPF Urine WBC (0-5/HPF) /HPF Ur Epithelial Cells (NOT SEEN) /HPF Amorphous Sediment (NOT SEEN) /HPF Urine Bacteria (0-FEW/HPF) /HPF Urine Mucus (NOT SEEN) /LPF Urine HCG, Qual Urine Opiates Screen (NEGATIVE) Ur Oxycodone Screen (NEGATIVE) Urine Methadone Screen (NEGATIVE) Ur Barbiturates Screen (NEGATIVE) U Tricyclic Antidepress (NEGATIVE) Ur Phencyclidine Scrn (NEGATIVE) Ur Amphetamine Screen (NEGATIVE) U Methamphetamines Scrn (NEGATIVE) Urine MDMA Screen (NEGATIVE) U Benzodiazepines Scrn (NEGATIVE) Urine Cocaine Screen (NEGATIVE) U Marijuana (THC) Screen (NEGATIVE) Ethyl Alcohol (0) mg/dL SARS CoV-2 RNA Rapid JOANA Negative (NEGATIVE) 03/19/20 03/19/20 03/19/20 Range/Units 05:52 05:52 05:52 WBC 3.0 L (5.0-10.0) 10^3/uL RBC 2.39 L (4.2-5.4) 10^6/uL Hgb 7.5 L D (12.0-16.0) g/dL Hct 23.1 L (37.0-47.0) % MCV 96.7 (80-100) fL MCH 31.4 (27.0-34.0) pg MCHC 32.5 L (33.0-35.0) g/dL Plt Count 61 L (150-450) 10^3/uL Neut % (Auto) 61.0 (42.2-75.2) % Lymph % (Auto) 26.3 (20.5-50.1) % [place] % (Auto) 11.4 H (2-8) % Eos % (Auto) 1.3 (1.0-3.0) % Baso % (Auto) 0.0 (0.0-1.0) % Sodium (136-145) mmol/L Potassium (3.5-5.1) mmol/L Chloride (98-107) mmol/L Carbon Dioxide (21-32) mmol/L Anion Gap (7-13) mEq/L BUN (7-18) mg/dL Creatinine (0.55-1.02) mg/dL Est Cr Clr Drug Dosing mL/min Estimated GFR (MDRD) BUN/Creatinine Ratio (No establ ref range) Glucose (74-99) mg/dL Lactic Acid 0.9 (0.4-2.0) mmol/L Calcium (8.5-10.1) mg/dL Phosphorus (2.6-4.7) mg/dL Magnesium (1.8-2.4) mg/dL Total Bilirubin (0.2-1.0) mg/dL Direct Bilirubin (0.0-0.2) mg/dL Indirect Bilirubin AST (15-37) U/L ALT (14-59) U/L Alkaline Phosphatase (46-116) U/L Ammonia 46 H (11-32) umol/L Total Protein (6.4-8.2) g/dL Albumin (3.4-5.0) g/dL Globulin Albumin/Globulin Ratio Amylase (25-115) U/L Lipase (73-393) U/L Urine Color (YELLOW) Urine Appearance (CLEAR) Urine pH (5.0-9.0) Ur Specific Jeff (1.005-1.030) Urine Protein (NEGATIVE) Urine Glucose (UA) (NEGATIVE) Urine Ketones (NEGATIVE) Urine Occult Blood (NEGATIVE) Urine Nitrite (NEGATIVE) Urine Bilirubin (NEGATIVE) Urine Urobilinogen (0.2-1.0) mg/dL Ur Leukocyte Esterase (NEGATIVE) Urine RBC /HPF Urine WBC (0-5/HPF) /HPF Ur Epithelial Cells (NOT SEEN) /HPF Amorphous Sediment (NOT SEEN) /HPF Urine Bacteria (0-FEW/HPF) /HPF Urine Mucus (NOT SEEN) /LPF Urine HCG, Qual Urine Opiates Screen (NEGATIVE) Ur Oxycodone Screen (NEGATIVE) Urine Methadone Screen (NEGATIVE) Ur Barbiturates Screen (NEGATIVE) U Tricyclic Antidepress (NEGATIVE) Ur Phencyclidine Scrn (NEGATIVE) Ur Amphetamine Screen (NEGATIVE) U Methamphetamines Scrn (NEGATIVE) Urine MDMA Screen (NEGATIVE) U Benzodiazepines Scrn (NEGATIVE) Urine Cocaine Screen (NEGATIVE) U Marijuana (THC) Screen (NEGATIVE) Ethyl Alcohol (0) mg/dL SARS CoV-2 RNA Rapid JOANA (NEGATIVE) Paulo Results Last 24 Hours: Microbiology 03/18/20 16:21 Urine Culture - Preliminary Urine, Clean Catch Med Orders - Current: Current Medications Fentanyl (Sublimaze) 25 mcg IVPUSH Q4H PRN PRN Reason: Pain (severe 7-10) Last Admin: 03/19/20 04:25 Dose: 25 mcg Documented by: Furosemide (Lasix) 20 mg PO BID [facility] Last Admin: 03/19/20 08:13 Dose: 20 mg Documented by: Heparin Sodium (Porcine) (Heparin Sodium) 5,000 units SUBCUT Q8HR [facility] Last Admin: 03/19/20 10:08 Dose: 5,000 units Documented by: Potassium Chloride/Sodium Chloride (Normal Saline With 20 Meq Kcl) 1,000 mls @ 75 mls/hr IV ASDIRECTED [facility] Last Admin: 03/19/20 03:00 Dose: 75 mls/hr Documented by: Ibuprofen (Motrin) 400 mg PO Q6H PRN PRN Reason: Pain (mild 1-3) Lactulose (Cephulac) 15 gm PO BID [facility] Last Admin: 03/19/20 08:16 Dose: 15 gm Documented by: Magnesium Oxide (Magnesium Oxide) 500 mg PO BID@0800,1800 [facility] Stop: 03/19/20 18:01 Last Admin: 03/19/20 08:13 Dose: 500 mg Documented by: Midodrine (Midodrine) 10 mg PO TID [facility] Last Admin: 03/19/20 08:13 Dose: 10 mg Documented by: Multivitamins/Minerals (Vitamins And Minerals) 1 tab PO DAILY [facility] Last Admin: 03/19/20 08:14 Dose: 1 tab Documented by: Omeprazole (Omeprazole) 20 mg PO BIDAC [facility] Last Admin: 03/19/20 08:13 Dose: 20 mg Documented by: Ondansetron HCl (Zofran Odt) 4 mg PO Q6H PRN PRN Reason: nausea, able to take PO Last Admin: 03/19/20 08:14 Dose: 4 mg Documented by: Ondansetron HCl (Zofran) 4 mg IVPUSH Q6H PRN PRN Reason: Nausea/Vomiting Potassium Chloride (Klor-Con 10) 20 meq PO DAILY [facility] Last Admin: 03/19/20 08:14 Dose: 20 meq Documented by: Prednisone (Prednisone) 20 mg PO DAILY [facility] Last Admin: 03/19/20 08:14 Dose: 20 mg Documented by: Propranolol HCl (Inderal) 20 mg PO BID [facility] Last Admin: 03/19/20 08:16 Dose: Not Given Documented by: Rifaximin (Xifaxan) 550 mg PO BID [facility] Last Admin: 03/19/20 08:14 Dose: 550 mg Documented by: Sertraline HCl (Zoloft) 150 mg PO DAILY [facility] Last Admin: 03/19/20 08:14 Dose: 150 mg Documented by: Sodium Chloride (Saline Flush) 10 ml FLUSH ASDIRECTED PRN PRN Reason: Keep Vein Open Spironolactone (Aldactone) 50 mg PO DAILY [facility] Last Admin: 03/19/20 08:13 Dose: 50 mg Documented by: Thiamine HCl (Vitamin B-1) 100 mg PO DAILY [facility] Last Admin: 03/19/20 08:14 Dose: 100 mg Documented by: Tramadol HCl (Ultram) 50 mg PO Q6H PRN PRN Reason: moderate to severe pain Last Admin: 03/18/20 21:40 Dose: 50 mg Documented by: Trazodone HCl (Trazodone) 50 mg PO BEDTIME PRN PRN Reason: for sleep Last Admin: 03/18/20 21:42 Dose: 50 mg Documented by: Discontinued Medications Azithromycin (Zithromax) 1,000 mg PO ONETIME ONE Stop: 03/18/20 17:38 Last Admin: 03/18/20 18:05 Dose: 1,000 mg Documented by: Ceftriaxone Sodium 1 gm/ (Lidocaine HCl 2.1 ml) 0 gm IM ONETIME ONE Stop: 03/18/20 17:37 Last Admin: 03/18/20 18:12 Dose: 1 inj Documented by: Hydromorphone HCl (Dilaudid) 1 mg IVPUSH ONETIME ONE Stop: 03/18/20 17:13 Last Admin: 03/18/20 17:29 Dose: 1 mg Documented by: Potassium Chloride 20 meq/ (Premix) 100 mls @ 50 mls/hr IV ONETIME ONE Stop: 03/18/20 19:06 Last Admin: 03/18/20 17:36 Dose: 50 mls/hr Documented by: Magnesium Sulfate/Dextrose (Magnesium Sulfate In D5w 100 Premix) 1 gm in 100 mls @ 100 mls/hr IV ONETIME ONE Stop: 03/18/20 18:07 Last Admin: 03/18/20 19:34 Dose: 100 mls/hr Documented by: Sodium Chloride (Normal Saline) 1,000 mls @ 125 mls/hr IV ASDIRECTED ONE Stop: 03/19/20 01:09 Last Admin: 03/18/20 17:29 Dose: 125 mls/hr Documented by: Potassium Chloride 10 meq/ (Premix) 100 mls @ 50 mls/hr IV Q2H JOHANA Stop: 03/19/20 03:59 Last Admin: 03/19/20 01:15 Dose: Not Given Documented by: Potassium Chloride 10 meq/ (Premix) 100 mls @ 50 mls/hr IV Q2H [facility] Stop: 03/19/20 05:59 Last Admin: 03/19/20 03:42 Dose: 50 mls/hr Documented by: Lidocaine HCl (Xylocaine-Mpf 1%) 1 ml INJECT ONETIME ONE Stop: 03/18/20 17:28 Last Admin: 03/18/20 17:35 Dose: 1 ml Documented by: - Exam Quality Assessment: No: Supplemental Oxygen General: Alert, Oriented Neck: Supple Lungs: Clear to Auscultation, Normal Respiratory Effort Cardiovascular: Regular Rate, Regular Rhythm GI/Abdominal Exam: Normal Bowel Sounds, Soft, Other (ascites palpable but does not appear to have pain on palpation, abdomen is soft). No: Guarding, Rigid, Rebound, Tender Extremities: No Pedal Edema Skin: Warm, Dry Neurological: No New Focal Deficit Psy/Mental Status: Alert, Normal Affect, Normal Mood Sepsis Event Note - Evaluation Sepsis Screening Result: No Definite Risk - Focused Exam Vital Signs: Vital Signs Temp Pulse Resp BP Pulse Ox 03/19/20 08:00 97.2 F 82 20 91/52 L 96 03/19/20 04:00 98.2 F 78 18 122/66 99 03/18/20 23:56 99.0 F 76 18 115/67 99 - Problem List & Annotations (1) Abdominal pain SNOMED Code(s): 30623599 Code(s): R10.9 - UNSPECIFIED ABDOMINAL PAIN Status: Acute Current Visit: No Qualifiers: Abdominal location: epigastric Qualified Code(s): R10.13 - Epigastric pain (2) Hepatic encephalopathy SNOMED Code(s): 63782675 Code(s): K72.90 - HEPATIC FAILURE, UNSPECIFIED WITHOUT COMA Status: Acute Current Visit: No (3) Hypokalemia SNOMED Code(s): 04675150 Code(s): E87.6 - HYPOKALEMIA Status: Acute Current Visit: No (4) Hypomagnesemia SNOMED Code(s): 903689190 Code(s): E83.42 - HYPOMAGNESEMIA Status: Acute Current Visit: No - Problem List Review Problem List Initiated/Reviewed/Updated: Yes - My Orders Last 24 Hours: My Active Orders 03/18/20 19:46 traMADol [Ultram] 50 mg PO Q6H PRN traZODone 50 mg PO BEDTIME PRN 03/18/20 19:50 Abdomen Pelvis wo Cont [CT] Routine 03/18/20 19:56 Oxygen Therapy [RC] PRN Up With Assistance [RC] ASDIRECTED VTE/DVT Education [RC] PER UNIT ROUTINE Vital Signs [RC] 00,04,08,12,16,20 Ibuprofen [Motrin] 400 mg PO Q6H PRN Ondansetron [Zofran ODT] 4 mg PO Q6H PRN Ondansetron [Zofran] 4 mg IVPUSH Q6H PRN Sodium Chloride 0.9% [Saline Flush] 10 ml FLUSH ASDIRECTED PRN Antiembolic Hose [OM.PC] Per Unit Routine Peripheral IV Insertion Adult [OM.PC] Routine Resuscitation Status Routine 03/18/20 19:57 Antiembolic Devices [RC] PER UNIT ROUTINE Peripheral IV Care [RC] 03/18/20 21:00 Furosemide [Lasix] 20 mg PO BID Lactulose [Cephulac] 15 gm PO BID Midodrine 10 mg PO TID Propranolol [Inderal] 20 mg PO BID Rifaximin [Xifaxan] 550 mg PO BID 03/19/20 03:55 fentaNYL [Sublimaze] 25 mcg IVPUSH Q4H PRN 03/19/20 04:00 NS + KCl 20mEq/L [Normal Saline with 20 mEq KCl] 1,000 ml IV ASDIRECTED 03/19/20 06:00 Omeprazole 20 mg PO BIDAC 03/19/20 Breakfast Clear Liquid Diet [DIET] 03/19/20 08:00 Magnesium Oxide 500 mg PO BID@0800,1800 03/19/20 09:00 Heparin Sodium 5,000 units SUBCUT Q8HR Multivitamins/Minerals [Vitamins and Minerals] 1 tab PO DAILY Potassium Chloride [Klor-Con 10] 20 meq PO DAILY Sertraline [Zoloft] 150 mg PO DAILY Spironolactone [Aldactone] 50 mg PO DAILY Thiamine [Vitamin B-1] 100 mg PO DAILY predniSONE 20 mg PO DAILY - Plan Plan:: 44-year-old with a history of hepatitic encephalopathy, portal hypertension presented with abdominal pain, nausea. She was noted to have severe hypokalemia in the emergency room Abdominal pain Associated with nausea, vomiting The patient has diarrhea but that might relate to lactulose Has a history of kidney stones but she feels this is different type of pain negative urine preg CT of the abdomen, pelvis showed no acute changes, no obvious explanation for the pain Lactic acidosis I do not think this represents sepsis Likely due to chronic liver disease resolved with hydration Electrolyte abnormalities including severe hypokalemia, low magnesium, hyponatremia We will continue to replace with oral magnesium, IV potassiumsupplement Recheck in the morning stopped IV hydration, resume Lasix and spironolactone increase spironolactone dose Chronic liver cirrhosis, portal hypertension, Appear to have ascites I do not think the patient has bacterial peritonitis Well monitor Has been on midodrine along with propranolol - try to balance the two meds Continue lactulose, rifaximin Urinary tract infection pending urine culture Given azithromycin in the emergency room continue empirical ceftriaxone pancytopenia Significant drop in hemoglobin This might relate to hydration No apparent active bleeding We'll monitor DVT prophylaxis with subcutaneous heparin continue subcutaneous heparin while platelet count is above 60
[2020-03-19] MEDS: traMADol 50 MG Tab PO PRN (13:06)
[2020-03-19] MEDS: traZODone 50 MG Tab PO PRN (21:03)
[2020-03-19] MEDS ORDERED: Potassium Chloride 10 MEQ in Premix Bag 1 BAG IV SCH (22:30)
[2020-03-20] MEDS: fentaNYL 100 MCG/2 ML SDV IVPUSH PRN (01:31)
[2020-03-20] MEDS: Omeprazole 20 MG Cap.CR PO SCH ×2 (06:09→16:02)
[2020-03-20] MEDS: Heparin Sodium 5,000 Units/ML Vial SUBCUT SCH ×3 (06:09→21:24)
[2020-03-20 07:01] LABS: ANION GAP 10.6 mEq/L (7-13)
[2020-03-20] MEDS: Spironolactone 25 MG Tab PO SCH (08:56)
[2020-03-20] MEDS: Propranolol 10 MG Tab PO SCH (08:57)
[2020-03-20] MEDS: Lactulose Soln 10 GM/15 ML 30 ML UD Cup PO SCH ×2 (08:57→21:25)
[2020-03-20] MEDS: Potassium Chloride 10 MEQ Tab.ER PO SCH (08:59)
[2020-03-20] MEDS: Midodrine 2.5 MG Tab PO SCH ×3 (08:59→21:19)
[2020-03-20] MEDS: predniSONE 20 MG Tab PO SCH (08:59)
[2020-03-20] MEDS: Multivitamins, Therapeutic with Minerals Tab PO SCH (09:00)
[2020-03-20] MEDS: Furosemide 20 MG Tab PO SCH ×2 (09:00→21:25)
[2020-03-20] MEDS: Rifaximin 550 MG Tab PO SCH ×2 (09:00→21:18)
[2020-03-20] MEDS: Thiamine 100 MG Tab PO SCH (09:00)
[2020-03-20] MEDS: Sertraline 50 MG Tab PO SCH (09:00)
[2020-03-20] MEDS: Ciprofloxacin 500 MG Tab PO SCH ×2 (14:09→21:18)
--- NOTE | 2020-03-20 14:55 | PCM.PN ---
- General Info Date of Service: 03/20/20 Admission Dx/Problem (Free Text): Admission Diagnosis/Problem Admission Diagnosis/Problem Hypokalemia Subjective Update: no further vomiting Tolerating the liquid diet Abdominal pain is better although still required IV fentanyl during the night. No associated fever. She is feeling better. Has been receiving IV potassium supplements. no black or bloody stool, no vomiting. Functional Status: Reports: Tolerating Diet - Review of Systems General: Reports: Weakness. Denies: Fever Pulmonary: Denies: Shortness of Breath Cardiovascular: Denies: Chest Pain, Edema Neurological: Denies: Confusion - Patient Data Vitals - Most Recent: Last Vital Signs Temp 98.0 F 03/20/20 12:00 Pulse 76 03/20/20 12:00 Resp 20 03/20/20 12:00 BP 92/63 03/20/20 12:00 Pulse Ox 96 03/20/20 12:00 Weight - Most Recent: 155 lb I&O - Last 24 Hours: Intake & Output 03/19/20 03/20/20 03/20/20 22:59 06:59 14:59 Intake Total 850 Balance 850 Lab Results Last 24 Hours: Laboratory Results - last 24 hr 03/20/20 03/20/20 03/20/20 Range/Units 05:31 05:31 05:31 WBC 4.4 L (5.0-10.0) 10^3/uL RBC 2.37 L (4.2-5.4) 10^6/uL Hgb 7.4 L (12.0-16.0) g/dL Hct 23.7 L (37.0-47.0) % MCV 100.0 D (80-100) fL MCH 31.2 (27.0-34.0) pg MCHC 31.2 L (33.0-35.0) g/dL Plt Count 84 L (150-450) 10^3/uL Neut % (Auto) 60.1 (42.2-75.2) % Lymph % (Auto) 31.0 (20.5-50.1) % [place] % (Auto) 7.8 (2-8) % Eos % (Auto) 1.1 (1.0-3.0) % Baso % (Auto) 0.0 (0.0-1.0) % Percent Retic 2 H (0.5-1.5) % Sodium 138 (136-145) mmol/L Potassium 3.6 (3.5-5.1) mmol/L Chloride 106 (98-107) mmol/L Carbon Dioxide 25 (21-32) mmol/L Anion Gap 10.6 (7-13) mEq/L BUN 7 (7-18) mg/dL Creatinine 1.24 H (0.55-1.02) mg/dL Est Cr Clr Drug Dosing 51.04 mL/min Estimated GFR (MDRD) 47 Glucose 117 H (74-99) mg/dL Calcium 7.3 L (8.5-10.1) mg/dL Phosphorus 1.6 L (2.6-4.7) mg/dL Magnesium 1.6 L (1.8-2.4) mg/dL Iron (50-175) ug/dL TIBC (250-450) ug/dL % Saturation (20.0-50.0) % Vitamin B12 (193-986) pg/mL Folate (8.6-58.9) ng/mL 03/20/20 03/20/20 Range/Units 05:31 05:31 WBC (5.0-10.0) 10^3/uL RBC (4.2-5.4) 10^6/uL Hgb (12.0-16.0) g/dL Hct (37.0-47.0) % MCV (80-100) fL MCH (27.0-34.0) pg MCHC (33.0-35.0) g/dL Plt Count (150-450) 10^3/uL Neut % (Auto) (42.2-75.2) % Lymph % (Auto) (20.5-50.1) % [place] % (Auto) (2-8) % Eos % (Auto) (1.0-3.0) % Baso % (Auto) (0.0-1.0) % Percent Retic (0.5-1.5) % Sodium (136-145) mmol/L Potassium (3.5-5.1) mmol/L Chloride (98-107) mmol/L Carbon Dioxide (21-32) mmol/L Anion Gap (7-13) mEq/L BUN (7-18) mg/dL Creatinine (0.55-1.02) mg/dL Est Cr Clr Drug Dosing mL/min Estimated GFR (MDRD) Glucose (74-99) mg/dL Calcium (8.5-10.1) mg/dL Phosphorus (2.6-4.7) mg/dL Magnesium (1.8-2.4) mg/dL Iron 75 (50-175) ug/dL TIBC 230 L (250-450) ug/dL % Saturation 32.6 (20.0-50.0) % Vitamin B12 900 (193-986) pg/mL Folate 7.1 L (8.6-58.9) ng/mL Paulo Results Last 24 Hours: Microbiology 03/18/20 16:21 Urine Culture - Final Urine, Clean Catch Escherichia Coli 03/18/20 16:18 Aerobic Blood Culture - Preliminary Blood - Arm, Right NO GROWTH AFTER 1 DAY Anaerobic Blood Culture - Preliminary NO GROWTH AFTER 1 DAY Med Orders - Current: Current Medications Ciprofloxacin (Ciprofloxacin Hcl) 250 mg PO BID [facility] Last Admin: 03/20/20 14:09 Dose: 250 mg Documented by: Fentanyl (Sublimaze) 25 mcg IVPUSH Q4H PRN PRN Reason: Pain (severe 7-10) Last Admin: 03/20/20 01:31 Dose: 25 mcg Documented by: Folic Acid (Folic Acid) 1 mg PO DAILY [facility] Furosemide (Lasix) 20 mg PO BID [facility] Last Admin: 03/20/20 09:00 Dose: 20 mg Documented by: Heparin Sodium (Porcine) (Heparin Sodium) 5,000 units SUBCUT Q8HR [facility] Last Admin: 03/20/20 14:10 Dose: 5,000 units Documented by: Ibuprofen (Motrin) 400 mg PO Q6H PRN PRN Reason: Pain (mild 1-3) Lactulose (Cephulac) 15 gm PO BID [facility] Last Admin: 03/20/20 08:57 Dose: 15 gm Documented by: Midodrine (Midodrine) 10 mg PO TID [facility] Last Admin: 03/20/20 14:13 Dose: 10 mg Documented by: Multivitamins/Minerals (Vitamins And Minerals) 1 tab PO DAILY [facility] Last Admin: 03/20/20 09:00 Dose: 1 tab Documented by: [facility] Admin: 03/20/20 06:09 Dose: 20 mg Documented by: Ondansetron HCl (Zofran Odt) 4 mg PO Q6H PRN PRN Reason: nausea, able to take PO Last Admin: 03/19/20 08:14 Dose: 4 mg Documented by: Ondansetron HCl (Zofran) 4 mg IVPUSH Q6H PRN PRN Reason: Nausea/Vomiting Prednisone (Prednisone) 20 mg PO DAILY [facility] Last Admin: 03/20/20 08:59 Dose: 20 mg Documented by: Rifaximin (Xifaxan) 550 mg PO BID [facility] Last Admin: 03/20/20 09:00 Dose: 550 mg Documented by: Sertraline HCl (Zoloft) 150 mg PO DAILY [facility] Last Admin: 03/20/20 09:00 Dose: 150 mg Documented by: Sodium Chloride (Saline Flush) 10 ml FLUSH ASDIRECTED PRN PRN Reason: Keep Vein Open Sodium Phosphate (Neutra-Phos) 250 mg PO DAILY [facility] Sodium Phosphate (Neutra-Phos) 250 mg PO QID [facility] Stop: 03/20/20 21:01 Spironolactone (Aldactone) 100 mg PO DAILY [facility] Last Admin: 03/20/20 08:56 Dose: 100 mg Documented by: Thiamine HCl (Vitamin B-1) 100 mg PO DAILY [facility] Last Admin: 03/20/20 09:00 Dose: 100 mg Documented by: Tramadol HCl (Ultram) 50 mg PO Q6H PRN PRN Reason: moderate to severe pain Last Admin: 03/19/20 13:06 Dose: 50 mg Documented by: Trazodone HCl (Trazodone) 50 mg PO BEDTIME PRN PRN Reason: for sleep Last Admin: 03/19/20 21:03 Dose: 50 mg Documented by: Discontinued Medications Azithromycin (Zithromax) 1,000 mg PO ONETIME ONE Stop: 03/18/20 17:38 Last Admin: 03/18/20 18:05 Dose: 1,000 mg Documented by: Ceftriaxone Sodium 1 gm/ (Lidocaine HCl 2.1 ml) 0 gm IM ONETIME ONE Stop: 03/18/20 17:37 Last Admin: 03/18/20 18:12 Dose: 1 inj Documented by: Hydromorphone HCl (Dilaudid) 1 mg IVPUSH ONETIME ONE Stop: 03/18/20 17:13 Last Admin: 03/18/20 17:29 Dose: 1 mg Documented by: Potassium Chloride 20 meq/ (Premix) 100 mls @ 50 mls/hr IV ONETIME ONE Stop: 03/18/20 19:06 Last Admin: 03/18/20 17:36 Dose: 50 mls/hr Documented by: Magnesium Sulfate/Dextrose (Magnesium Sulfate In D5w 100 Premix) 1 gm in 100 mls @ 100 mls/hr IV ONETIME ONE Stop: 03/18/20 18:07 Last Admin: 03/18/20 19:34 Dose: 100 mls/hr Documented by: Sodium Chloride (Normal Saline) 1,000 mls @ 125 mls/hr IV ASDIRECTED ONE Stop: 03/19/20 01:09 Last Admin: 03/18/20 17:29 Dose: 125 mls/hr Documented by: Potassium Chloride 10 meq/ (Premix) 100 mls @ 50 mls/hr IV Q2H [facility] Stop: 03/19/20 03:59 Last Admin: 03/19/20 01:15 Dose: Not Given Documented by: Potassium Chloride/Sodium Chloride (Normal Saline With 20 Meq Kcl) 1,000 mls @ 75 mls/hr IV ASDIRECTED [facility] Last Infusion: 03/19/20 13:02 Dose: 75 mls/hr Documented by: Potassium Chloride 10 meq/ (Premix) 100 mls @ 50 mls/hr IV Q2H [facility] Stop: 03/19/20 05:59 Last Admin: 03/19/20 03:42 Dose: 50 mls/hr Documented by: Potassium Chloride 10 meq/ (Premix) 100 mls @ 50 mls/hr IV Q2H [facility] Stop: 03/19/20 21:44 Last Admin: 03/19/20 22:31 Dose: Not Given Documented by: Potassium Chloride 10 meq/ (Premix) 100 mls @ 50 mls/hr IV Q2H [facility] Stop: 03/20/20 00:29 Last Admin: 03/19/20 22:31 Dose: 50 mls/hr Documented by: Lidocaine HCl (Xylocaine-Mpf 1%) 1 ml INJECT ONETIME ONE Stop: 03/18/20 17:28 Last Admin: 03/18/20 17:35 Dose: 1 ml Documented by: Magnesium Oxide (Magnesium Oxide) 500 mg PO BID@0800,1800 [facility] Stop: 03/19/20 18:01 Last Admin: 03/19/20 17:17 Dose: 500 mg Documented by: Magnesium Oxide (Magnesium Oxide) 500 mg PO ONETIME ONE Stop: 03/20/20 14:21 Potassium Chloride (Klor-Con 10) 20 meq PO DAILY [facility] Last Admin: 03/20/20 08:59 Dose: 20 meq Documented by: Propranolol HCl (Inderal) 20 mg PO BID [facility] Last Admin: 03/20/20 08:57 Dose: 20 mg Documented by: Spironolactone (Aldactone) 50 mg PO DAILY [facility] Last Admin: 03/19/20 08:13 Dose: 50 mg Documented by: - Exam Quality Assessment: No: Supplemental Oxygen General: Alert, Oriented Neck: Supple Lungs: Clear to Auscultation, Normal Respiratory Effort Cardiovascular: Regular Rate, Regular Rhythm GI/Abdominal Exam: Normal Bowel Sounds, Soft, Non-Tender, Other (ascites palpable) Extremities: No Pedal Edema Sepsis Event Note - Evaluation Sepsis Screening Result: No Definite Risk - Focused Exam Vital Signs: Vital Signs Temp Pulse Pulse Resp BP BP Pulse Ox 03/20/20 12:00 98.0 F 76 20 92/63 96 03/20/20 08:57 77 77/49 L 03/20/20 08:28 97.7 F 77 20 77/49 L 96 03/20/20 04:00 98.2 F 76 20 96/61 100 - Problem List & Annotations (1) Abdominal pain SNOMED Code(s): 11001212 Code(s): R10.9 - UNSPECIFIED ABDOMINAL PAIN Status: Acute Current Visit: No Qualifiers: Abdominal location: epigastric Qualified Code(s): R10.13 - Epigastric pain (2) Hepatic encephalopathy SNOMED Code(s): 31206745 Code(s): K72.90 - HEPATIC FAILURE, UNSPECIFIED WITHOUT COMA Status: Acute Current Visit: No (3) Hypokalemia SNOMED Code(s): 16738668 Code(s): E87.6 - HYPOKALEMIA Status: Acute Current Visit: No (4) Hypomagnesemia SNOMED Code(s): 204502677 Code(s): E83.42 - HYPOMAGNESEMIA Status: Acute Current Visit: No - Problem List Review Problem List Initiated/Reviewed/Updated: Yes - My Orders Last 24 Hours: My Active Orders 03/20/20 09:00 Spironolactone [Aldactone] 100 mg PO DAILY 03/20/20 11:12 OCCULT BLOOD DIAGNOSTIC [OP] Routine 03/20/20 Lunch General [Regular Diet] [DIET] 03/20/20 13:00 Ciprofloxacin [Ciprofloxacin HCl] 250 mg PO BID 03/20/20 14:15 Folic Acid 1 mg PO DAILY 03/20/20 14:20 Phosphorus #1 [Neutra-Phos] 250 mg PO QID 03/21/20 05:11 MAGNESIUM [CHEM] AM PHOSPHORUS [CHEM] AM 03/21/20 05:15 BASIC METABOLIC PANEL,BMP [CHEM] AM CBC WITH AUTO DIFF [HEME] AM 03/21/20 09:00 Phosphorus #1 [Neutra-Phos] 250 mg PO DAILY - Plan Plan:: 44-year-old with a history of hepatitic encephalopathy, portal hypertension presented with abdominal pain, nausea. She was noted to have severe hypokalemia in the emergency room Abdominal pain Associated with nausea, vomiting The patient has diarrhea but that is likely relating to lactulose Has a history of kidney stones but she feels this is different type of pain negative urine preg CT of the abdomen, pelvis showed no acute changes, no obvious explanation for the pain pain is improved Tolerating diet Further advance the diet to general Lactic acidosis I do not think this represents sepsis Likely due to chronic liver disease resolved with hydration Electrolyte abnormalities including severe hypokalemia, low magnesium, hyponatremia improved We will continue to replace with oral magnesium, potassium and phosphorus Recheck in the morning resumed Lasix and spironolactone increase spironolactone dose Chronic liver cirrhosis, portal hypertension, Appear to have ascites I do not think the patient has bacterial peritonitis Well monitor Has been on midodrine along with propranolol blood pressure has been low Stop propranolol Continue lactulose, rifaximin Urinary tract infection urine culture shows Escherichia coli sensitive to all antibiotics Given azithromycin in the emergency room continue ceftriaxone pancytopenia thrombocytopenia is likely secondary to portal hypertension Anemia is significant but hemoglobin is stable No apparent iron deficiency Folate level is low Supplement folate Continue thiamine Check a reticulocyte level Check old blood from stool No apparent active bleeding hold transfusion for now We'll monitor DVT prophylaxis with subcutaneous heparin continue subcutaneous heparin while platelet count is above 60
[2020-03-20] MEDS: Phosphorus #1 250 MG Tab PO SCH ×3 (16:00→21:33)
[2020-03-20] MEDS: Folic Acid 1 MG Tab PO SCH (16:00)
[2020-03-20] MEDS: traZODone 50 MG Tab PO PRN (21:24)
[2020-03-21] MEDS: Heparin Sodium 5,000 Units/ML Vial SUBCUT SCH (05:47)
[2020-03-21] MEDS: Omeprazole 20 MG Cap.CR PO SCH (05:48)
[2020-03-21 07:33] LABS: ANION GAP 11.5 mEq/L (7-13)
[2020-03-21] MEDS: Spironolactone 25 MG Tab PO SCH (10:05)
[2020-03-21] MEDS: Midodrine 2.5 MG Tab PO SCH (10:06)
[2020-03-21] MEDS: Sertraline 50 MG Tab PO SCH (10:08)
[2020-03-21] MEDS: Phosphorus #1 250 MG Tab PO SCH (10:09)
[2020-03-21] MEDS: Furosemide 20 MG Tab PO SCH (10:09)
[2020-03-21] MEDS: Folic Acid 1 MG Tab PO SCH (10:09)
[2020-03-21] MEDS: Thiamine 100 MG Tab PO SCH (10:09)
[2020-03-21] MEDS: Ciprofloxacin 500 MG Tab PO SCH (10:11)
[2020-03-21] MEDS: Rifaximin 550 MG Tab PO SCH (10:11)
[2020-03-21] MEDS: predniSONE 20 MG Tab PO SCH (10:11)
[2020-03-21] MEDS: Lactulose Soln 10 GM/15 ML 30 ML UD Cup PO SCH (10:13)
[2020-03-21] MEDS: Multivitamins, Therapeutic with Minerals Tab PO SCH (10:15)
--- NOTE | 2020-03-21 10:33 | PCM.DCSUM1 ---
Discharge Summary - Hospital Course Free Text/Narrative:: 44-year-old with a history of hepatitic encephalopathy, portal hypertension presented with abdominal pain, nausea. She was noted to have severe hypokalemia in the emergency room Abdominal pain Associated with nausea, vomiting The patient has diarrhea but that is likely relating to lactulose Has a history of kidney stones but she feels this is different type of pain negative urine preg CT of the abdomen, pelvis showed no acute changes, no obvious explanation for the pain pain is improved Tolerating diet Lactic acidosis I do not think this represents sepsis Likely due to chronic liver disease resolved with hydration Electrolyte abnormalities including severe hypokalemia, low magnesium, hyponatremia improved with replacement resumed Lasix and increased spironolactone add Kphos supplement follow periodically Chronic liver cirrhosis, portal hypertension, with ascites Has been on midodrine along with propranolol blood pressure has been low Stopped propranolol Continue lactulose, rifaximin Urinary tract infection urine culture shows Escherichia coli sensitive to all antibiotics Given azithromycin in the emergency room tx with cipro pancytopenia thrombocytopenia is likely secondary to portal hypertension Anemia is significant but hemoglobin is stable No apparent iron deficiency Folate level is low Supplement folate Continue thiamine pending reticulocyte level No apparent active bleeding hold transfusion for now hgb stable 7.4-7.6 Diagnosis: Stroke: No - Discharge Data Discharge Date: 03/21/20 Discharge Disposition: Home, Self-Care 01 Condition: Good - Referral to Home Health Primary Care Physician: PCP None - Discharge Diagnosis/Problem(s) (1) Abdominal pain SNOMED Code(s): 69251892 ICD Code: R10.9 - UNSPECIFIED ABDOMINAL PAIN Status: Acute Current Visit: No Qualifiers: Abdominal location: epigastric Qualified Code(s): R10.13 - Epigastric pain (2) Hepatic encephalopathy SNOMED Code(s): 50914649 ICD Code: K72.90 - HEPATIC FAILURE, UNSPECIFIED WITHOUT COMA Status: Acute Current Visit: No (3) Hypokalemia SNOMED Code(s): 65054388 ICD Code: E87.6 - HYPOKALEMIA Status: Acute Current Visit: No (4) Hypomagnesemia SNOMED Code(s): 185914098 ICD Code: E83.42 - HYPOMAGNESEMIA Status: Acute Current Visit: No - Patient Instructions Diet: Heart Healthy Diet Activity: As Tolerated - Discharge Plan *PRESCRIPTION DRUG MONITORING PROGRAM REVIEWED*: Not Applicable *COPY OF PRESCRIPTION DRUG MONITORING REPORT IN PATIENT REBEKAH: Not Applicable Prescriptions/Med Rec: Spironolactone [Aldactone] 100 mg PO DAILY #30 tablet Ciprofloxacin [Ciprofloxacin HCl] 250 mg PO BID #6 tablet Folic Acid 1 mg PO DAILY #30 tablet Phosphorus #1 [Neutra-Phos] 250 mg PO BID #60 tablet Home Medications: Home Meds Furosemide [Lasix] 20 mg PO BID 03/18/20 [History] Lactulose [Cephulac] 15 ml PO BID 03/18/20 [History] Melatonin 3 mg PO BEDTIME PRN 03/18/20 [History] Midodrine 10 mg PO TID 03/18/20 [History] Multivit,Stress Formula/Zinc [Stress Formula with Zinc Tab] 1 tab PO DAILY 03/18/20 [History] Omeprazole 20 mg PO BIDAC 03/18/20 [History] Rifaximin [Xifaxan] 550 mg PO BID 03/18/20 [History] Sertraline [Zoloft] 150 mg PO DAILY 03/18/20 [History] Thiamine [Vitamin B-1] 100 mg PO DAILY 03/18/20 [History] predniSONE [Prednisone] 20 mg PO DAILY 03/18/20 [History] traMADol [Ultram] 50 mg PO Q6H PRN 03/18/20 [History] traZODone HCl [Trazodone HCl] 50 mg PO BEDTIME 03/18/20 [History] Ciprofloxacin [Ciprofloxacin HCl] 250 mg PO BID #6 tablet 03/21/20 [Rx] Folic Acid 1 mg PO DAILY #30 tablet 03/21/20 [Rx] Phosphorus #1 [Neutra-Phos] 250 mg PO BID #60 tablet 03/21/20 [Rx] Spironolactone [Aldactone] 100 mg PO DAILY #30 tablet 03/21/20 [Rx] Oxygen Therapy Mode: Room Air Patient Handouts: Hypokalemia, Potassium Content of Foods Referrals: Latoya Haddad NP [Ordering Only Provider] - - Discharge Summary/Plan Comment DC Time >30 min.: No - General Info Date of Service: 03/21/20 Admission Dx/Problem (Free Text: Admission Diagnosis/Problem Admission Diagnosis/Problem Hypokalemia Subjective Update: no further vomiting Tolerating the liquid diet Abdominal pain is better No associated fever. no black or bloody stool, no vomiting. Functional Status: Reports: Tolerating Diet, Ambulating - Review of Systems Pulmonary: Denies: Shortness of Breath Cardiovascular: Denies: Chest Pain, Edema Gastrointestinal: Denies: Abdominal Pain - Patient Data Vitals - Most Recent: Last Vital Signs Temp 97.9 F 03/21/20 08:00 Pulse 72 03/21/20 08:00 Resp 16 03/21/20 08:00 BP 83/53 L 03/21/20 08:00 Pulse Ox 94 L 03/21/20 08:00 Weight - Most Recent: 155 lb I&O - Last 24 hours: Intake & Output 03/20/20 03/21/20 03/21/20 22:59 06:59 14:59 Intake Total 840 Balance 840 Lab Results - Last 24 hrs: Laboratory Results - last 24 hr 03/20/20 03/20/20 03/20/20 Range/Units 05:31 05:31 05:31 WBC (5.0-10.0) 10^3/uL RBC (4.2-5.4) 10^6/uL Hgb (12.0-16.0) g/dL Hct (37.0-47.0) % MCV (80-100) fL MCH (27.0-34.0) pg MCHC (33.0-35.0) g/dL Plt Count (150-450) 10^3/uL Neut % (Auto) (42.2-75.2) % Lymph % (Auto) (20.5-50.1) % [place] % (Auto) (2-8) % Eos % (Auto) (1.0-3.0) % Baso % (Auto) (0.0-1.0) % Percent Retic 2 H (0.5-1.5) % Sodium (136-145) mmol/L Potassium (3.5-5.1) mmol/L Chloride (98-107) mmol/L Carbon Dioxide (21-32) mmol/L Anion Gap (7-13) mEq/L BUN (7-18) mg/dL Creatinine (0.55-1.02) mg/dL Est Cr Clr Drug Dosing mL/min Estimated GFR (MDRD) Glucose (74-99) mg/dL Calcium (8.5-10.1) mg/dL Phosphorus (2.6-4.7) mg/dL Magnesium (1.8-2.4) mg/dL Iron 75 (50-175) ug/dL TIBC 230 L (250-450) ug/dL % Saturation 32.6 (20.0-50.0) % Vitamin B12 900 (193-986) pg/mL Folate 7.1 L (8.6-58.9) ng/mL 03/21/20 03/21/20 Range/Units 05:32 05:32 WBC 4.4 L (5.0-10.0) 10^3/uL RBC 2.39 L (4.2-5.4) 10^6/uL Hgb 7.6 L (12.0-16.0) g/dL Hct 24.0 L (37.0-47.0) % MCV 100.4 H (80-100) fL MCH 31.8 (27.0-34.0) pg MCHC 31.7 L (33.0-35.0) g/dL Plt Count 83 L (150-450) 10^3/uL Neut % (Auto) 60.0 (42.2-75.2) % Lymph % (Auto) 32.0 (20.5-50.1) % [place] % (Auto) 7.1 (2-8) % Eos % (Auto) 0.7 L (1.0-3.0) % Baso % (Auto) 0.2 (0.0-1.0) % Percent Retic (0.5-1.5) % Sodium 140 (136-145) mmol/L Potassium 3.5 (3.5-5.1) mmol/L Chloride 107 (98-107) mmol/L Carbon Dioxide 25 (21-32) mmol/L Anion Gap 11.5 (7-13) mEq/L BUN 8 (7-18) mg/dL Creatinine 1.19 H (0.55-1.02) mg/dL Est Cr Clr Drug Dosing 53.18 mL/min Estimated GFR (MDRD) 50 Glucose 96 (74-99) mg/dL Calcium 7.4 L (8.5-10.1) mg/dL Phosphorus 2.6 (2.6-4.7) mg/dL Magnesium 1.6 L (1.8-2.4) mg/dL Iron (50-175) ug/dL TIBC (250-450) ug/dL % Saturation (20.0-50.0) % Vitamin B12 (193-986) pg/mL Folate (8.6-58.9) ng/mL STEPHANE Results - Last 24 hrs: Microbiology 03/20/20 22:55 Stool Occult Blood (STEPHANE) - Final Stool / Feces 03/18/20 16:18 Aerobic Blood Culture - Preliminary Blood - Arm, Right NO GROWTH AFTER 2 DAYS Anaerobic Blood Culture - Preliminary NO GROWTH AFTER 2 DAYS 03/18/20 16:21 Urine Culture - Final Urine, Clean Catch Escherichia Coli Med Orders - Current: Current Medications Ciprofloxacin (Ciprofloxacin Hcl) 250 mg PO BID [facility] Last Admin: 03/21/20 10:11 Dose: 250 mg Documented by: Fentanyl (Sublimaze) 25 mcg IVPUSH Q4H PRN PRN Reason: Pain (severe 7-10) Last Admin: 03/20/20 01:31 Dose: 25 mcg Documented by: Folic Acid (Folic Acid) 1 mg PO DAILY [facility] Last Admin: 03/21/20 10:09 Dose: 1 mg Documented by: Furosemide (Lasix) 20 mg PO BID [facility] Last Admin: 03/21/20 10:09 Dose: 20 mg Documented by: Heparin Sodium (Porcine) (Heparin Sodium) 5,000 units SUBCUT Q8HR [facility] Last Admin: 03/21/20 05:47 Dose: 5,000 units Documented by: Ibuprofen (Motrin) 400 mg PO Q6H PRN PRN Reason: Pain (mild 1-3) Lactulose (Cephulac) 15 gm PO BID [facility] Last Admin: 03/21/20 10:13 Dose: 15 gm Documented by: Midodrine (Midodrine) 10 mg PO TID [facility] Last Admin: 03/21/20 10:06 Dose: 10 mg Documented by: Multivitamins/Minerals (Vitamins And Minerals) 1 tab PO DAILY [facility] Last Admin: 03/21/20 10:15 Dose: 1 tab Documented by: Omeprazole (Omeprazole) 20 mg PO BIDAC [facility] Last Admin: 03/21/20 05:48 Dose: 20 mg Documented by: Ondansetron HCl (Zofran Odt) 4 mg PO Q6H PRN PRN Reason: nausea, able to take PO Last Admin: 03/19/20 08:14 Dose: 4 mg Documented by: Ondansetron HCl (Zofran) 4 mg IVPUSH Q6H PRN PRN Reason: Nausea/Vomiting Prednisone (Prednisone) 20 mg PO DAILY [facility] Last Admin: 03/21/20 10:11 Dose: 20 mg Documented by: Rifaximin (Xifaxan) 550 mg PO BID [facility] Last Admin: 03/21/20 10:11 Dose: 550 mg Documented by: Sertraline HCl (Zoloft) 150 mg PO DAILY [facility] Last Admin: 03/21/20 10:08 Dose: 150 mg Documented by: Sodium Chloride (Saline Flush) 10 ml FLUSH ASDIRECTED PRN PRN Reason: Keep Vein Open Sodium Phosphate (Neutra-Phos) 250 mg PO DAILY [facility] Last Admin: 03/21/20 10:09 Dose: 250 mg Documented by: Spironolactone (Aldactone) 100 mg PO DAILY [facility] Last Admin: 03/21/20 10:05 Dose: 100 mg Documented by: Thiamine HCl (Vitamin B-1) 100 mg PO DAILY [facility] Last Admin: 03/21/20 10:09 Dose: 100 mg Documented by: Tramadol HCl (Ultram) 50 mg PO Q6H PRN PRN Reason: moderate to severe pain Last Admin: 03/19/20 13:06 Dose: 50 mg Documented by: Trazodone HCl (Trazodone) 50 mg PO BEDTIME PRN PRN Reason: for sleep Last Admin: 03/20/20 21:24 Dose: 50 mg Documented by: Discontinued Medications Azithromycin (Zithromax) 1,000 mg PO ONETIME ONE Stop: 03/18/20 17:38 Last Admin: 03/18/20 18:05 Dose: 1,000 mg Documented by: Ceftriaxone Sodium 1 gm/ (Lidocaine HCl 2.1 ml) 0 gm IM ONETIME ONE Stop: 03/18/20 17:37 Last Admin: 03/18/20 18:12 Dose: 1 inj Documented by: Hydromorphone HCl (Dilaudid) 1 mg IVPUSH ONETIME ONE Stop: 03/18/20 17:13 Last Admin: 03/18/20 17:29 Dose: 1 mg Documented by: Potassium Chloride 20 meq/ (Premix) 100 mls @ 50 mls/hr IV ONETIME ONE Stop: 03/18/20 19:06 Last Admin: 03/18/20 17:36 Dose: 50 mls/hr Documented by: Magnesium Sulfate/Dextrose (Magnesium Sulfate In D5w 100 Premix) 1 gm in 100 mls @ 100 mls/hr IV ONETIME ONE Stop: 03/18/20 18:07 Last Admin: 03/18/20 19:34 Dose: 100 mls/hr Documented by: Sodium Chloride (Normal Saline) 1,000 mls @ 125 mls/hr IV ASDIRECTED ONE Stop: 03/19/20 01:09 Last Admin: 03/18/20 17:29 Dose: 125 mls/hr Documented by: Potassium Chloride 10 meq/ (Premix) 100 mls @ 50 mls/hr IV Q2H [facility] Stop: 03/19/20 03:59 Last Admin: 03/19/20 01:15 Dose: Not Given Documented by: Potassium Chloride/Sodium Chloride (Normal Saline With 20 Meq Kcl) 1,000 mls @ 75 mls/hr IV ASDIRECTED [facility] Last Infusion: 03/19/20 13:02 Dose: 75 mls/hr Documented by: Potassium Chloride 10 meq/ (Premix) 100 mls @ 50 mls/hr IV Q2H [facility] Stop: 03/19/20 05:59 Last Admin: 03/19/20 03:42 Dose: 50 mls/hr Documented by: Potassium Chloride 10 meq/ (Premix) 100 mls @ 50 mls/hr IV Q2H [facility] Stop: 03/19/20 21:44 Last Admin: 03/19/20 22:31 Dose: Not Given Documented by: Potassium Chloride 10 meq/ (Premix) 100 mls @ 50 mls/hr IV Q2H [facility] Stop: 03/20/20 00:29 Last Admin: 03/19/20 22:31 Dose: 50 mls/hr Documented by: Lidocaine HCl (Xylocaine-Mpf 1%) 1 ml INJECT ONETIME ONE Stop: 03/18/20 17:28 Last Admin: 03/18/20 17:35 Dose: 1 ml Documented by: Magnesium Oxide (Magnesium Oxide) 500 mg PO BID@0800,1800 [facility] Stop: 03/19/20 18:01 Last Admin: 03/19/20 17:17 Dose: 500 mg Documented by: Magnesium Oxide (Magnesium Oxide) 500 mg PO ONETIME ONE Stop: 03/20/20 14:21 Last Admin: 03/20/20 16:01 Dose: 500 mg Documented by: Potassium Chloride (Klor-Con 10) 20 meq PO DAILY [facility] Last Admin: 03/20/20 08:59 Dose: 20 meq Documented by: Propranolol HCl (Inderal) 20 mg PO BID [facility] Last Admin: 03/20/20 08:57 Dose: 20 mg Documented by: Sodium Phosphate (Neutra-Phos) 250 mg PO QID [facility] Stop: 03/20/20 21:01 Last Admin: 03/20/20 21:33 Dose: 250 mg Documented by: Spironolactone (Aldactone) 50 mg PO DAILY [facility] Last Admin: 03/19/20 08:13 Dose: 50 mg Documented by: - Exam Quality Assessment: Denies: Supplemental Oxygen General: Reports: Alert, Oriented Neck: Reports: Supple Lungs: Reports: Clear to Auscultation, Normal Respiratory Effort Cardiovascular: Reports: Regular Rate, Regular Rhythm GI/Abdominal Exam: Normal Bowel Sounds, Soft Extremities: No Pedal Edema
[2020-03-21] MEDS ORDERED: FLU Vacc QS2020-21 36MOS UP/PF 60 MCG/0.5 ML Syringe IM ONE (11:00)
[2020-03-21 13:47] LABS: C.TRACHOMATIS BY TMA Negative (Negative); N.GONORRHOEAE BY TMA Negative (Negative)
== END 2020-03-21 11:15 | disposition home or self-care (01) | DRG 640 ==
LOC: DL.ED 14:46 → EEVIPCON 18:33 → DL.MS 18:33 → DL.ED 18:56
PROVIDERS: ADMIT Internal Medicine; ATTEND Internal Medicine
DX: E87.6 Hypokalemia (principal); K72.00 Acute and subacute hepatic failure without coma; K76.6 Portal hypertension; R18.8 Other ascites; N39.0 Urinary tract infection, site not specified; D61.818 Other pancytopenia; E83.42 Hypomagnesemia; Z20.828 Contact with and (suspected) exposure to other viral communicable diseases; E87.2 Acidosis; E87.1 Hypo-osmolality and hyponatremia; K74.60 Unspecified cirrhosis of liver; D64.9 Anemia, unspecified; D69.6 Thrombocytopenia, unspecified; B96.20 Unspecified Escherichia coli [E. coli] as the cause of diseases classified elsewhere; R10.13 Epigastric pain; F41.9 Anxiety disorder, unspecified; F32.9 Major depressive disorder, single episode, unspecified; Z79.52 Long term (current) use of systemic steroids; Z87.442 Personal history of urinary calculi; Z79.899 Other long term (current) drug therapy; Z87.891 Personal history of nicotine dependence; Z86.19 Personal history of other infectious and parasitic diseases
CPT/HCPCS: 36415; 80053; 80305; 80307; 81001; 81025; 82140; 82150; 83605; 83690; 83735; 84100; 85025; 87040; 87086; 87088; 87186; 87491; 87591; 87635; 96365; 99285; A9270; J0696; J1170; J2001 ×2; J3480; J7030; 74176; 80048; 80076; 82272; 82607; 82746; 83540; 83550; 85045; 90686; 99284; G0008; J1644; J3010; J3475; J7512; U0002

== ENCOUNTER 2023-03-09 11:48 | Inpatient (IN) | payer MEDICAID ==
[2023-03-09] MEDS ORDERED: Sodium Chloride 0.9% 10 ML Syringe FLUSH PRN (12:32)
[2023-03-09] MEDS ORDERED: Thiamine 100 MG in Sodium Chloride 0.9% 100 ML IV ONE (12:33)
[2023-03-09] MEDS ORDERED: Ondansetron 4 MG/2 ML SDV IV ONE (12:33)
[2023-03-09] MEDS ORDERED: Sodium Chloride 0.9% 1,000 ML IV ONE (12:33)
[2023-03-09] MEDS ORDERED: Lactulose Soln 10 GM/15 ML 30 ML UD Cup PO ONE (12:34)
[2023-03-09 12:41] LABS: BASOPHILS PERCENT AUTO 0.1 % (0.0-1.0); HEMATOCRIT 40.6 % (37.0-47.0); HEMOGLOBIN 14.3 g/dL (12.0-16.0); LYMPHOCYTES PERCENT AUTO 15.1 % (20.5-50.1); MEAN CORPUSCULAR HEMOGLOBIN 35.9 pg (27.0-34.0); MEAN CORPUSCULAR HGB CONC 35.2 g/dL (33.0-35.0); MONOCYTES PERCENT AUTO 4.8 % (2-8); PLATELET COUNT,PLT 267 10^3/uL (150-450); RED BLOOD CELL COUNT 3.98 10^6/uL (4.2-5.4); WHITE BLOOD CELL COUNT,WBC 12.9 10^3/uL (5.0-10.0)
[2023-03-09 12:51] LABS: A/G RATIO 0.8; ALANINE AMINOTRANSFERASE,ALT 121 U/L (14-59); ALBUMIN 4.2 g/dL (3.4-5.0); ALKALINE PHOSPHATASE 68 U/L (46-116); ANION GAP 31.5 mEq/L (7-13); ASPARTATE AMNIOTRANSFERASE,AST 282 U/L (15-37); BLOOD UREA NITROGEN,BUN 37 mg/dL (7-18); CALCIUM 8.7 mg/dL (8.5-10.1); CARBON DIOXIDE,CO2 18 mmol/L (21-32); CHLORIDE,CL 90 mmol/L (98-107); CREATININE 1.95 mg/dL (0.55-1.02); EST CRCL DRUG DOSING (CG) 31.46 mL/min; GLUCOSE RANDOM 111 mg/dL (70-99); LIPASE 61 U/L (16-77); MAGNESIUM 1.6 mg/dL (1.8-2.4); POTASSIUM,K 2.5 mmol/L (3.5-5.1); PROTEIN TOTAL,TP 9.3 g/dL (6.4-8.2); SODIUM,NA 137 mmol/L (136-145)
[2023-03-09 12:52] LABS: INR 1.2 (0.9-1.2); PTT,PARTIAL THROMBOPLSTIN TIME 24.8 SEC (22.0-34.0)
[2023-03-09 12:55] LABS: LACTIC ACID 0.6 mmol/L (0.4-2.0)
[2023-03-09 12:58] LABS: ESTIMATED GFR 32 mL/min (>=60)
[2023-03-09 12:59] LABS: ETHANOL BLOOD MEDICAL < 3 mg/dL (0)
[2023-03-09 13:02] LABS: APPEARANCE,URINE SLIGHTLY CLOUDY (CLEAR); BILIRUBIN,URINE LARGE (NEGATIVE); COLOR,URINE DARK YELLOW (YELLOW); GLUCOSE,URINE NEGATIVE (NEGATIVE); KETONES,URINE >=160 (NEGATIVE); LEUKOCYTE ESTERASE,URINE SMALL (NEGATIVE); NITRITE,URINE NEGATIVE (NEGATIVE); OCCULT BLOOD,URINE LARGE (NEGATIVE); PROTEIN,URINE 100 (NEGATIVE)
[2023-03-09] MEDS ORDERED: Potassium Chloride 20 MEQ in Premix Bag 1 BAG IV ONE (13:03)
[2023-03-09] MEDS ORDERED: Lidocaine 1% 5 ML VIAL INJECT ONE (13:05)
[2023-03-09 13:09] LABS: AMPHETAMINES,URINE NEGATIVE (NEGATIVE); BARBITURATES,URINE NEGATIVE (NEGATIVE); BENZODIAZEPINE,URINE NEGATIVE (NEGATIVE); MDMA (ECSTASY), URINE NEGATIVE (NEGATIVE); METHADONE,URINE NEGATIVE (NEGATIVE); METHAMPHETAMINES,URINE NEGATIVE (NEGATIVE); OPIATES,URINE NEGATIVE (NEGATIVE); OXYCODONE,URINE NEGATIVE (NEGATIVE); PHENCYCLIDINE,URINE NEGATIVE (NEGATIVE); TCA,URINE NEGATIVE (NEGATIVE)
[2023-03-09 13:32] LABS: BACTERIA,URINE MODERATE /HPF (0-FEW/HPF); EPITHELIAL CELLS,URINE MODERATE /HPF (NOT SEEN); MUCUS,URINE FEW /LPF (NOT SEEN)
[2023-03-09] MEDS ORDERED: Ibuprofen 400 MG Tab PO PRN (15:38)
[2023-03-09] MEDS ORDERED: HYDROmorphone 0.5 MG/0.5 ML Syringe IVPUSH PRN (15:43)
[2023-03-09] MEDS ORDERED: Ondansetron 4 MG/2 ML SDV IVPUSH PRN (15:43)
[2023-03-09] MEDS ORDERED: Albuterol/Ipratropium 3.0-0.5 MG/3 ML Neb Soln NEB PRN (15:43)
[2023-03-09] MEDS ORDERED: oxyCODONE 5 MG Tab PO PRN (15:43)
[2023-03-09] MEDS ORDERED: FLU (Fluarix Quad) QS2023-24(6MOS UP)/PF 60 MCG/0.5 ML Syringe IM ONE (16:00)
[2023-03-09] MEDS ORDERED: MVI, Adult with Vitamin K 10 ML, Folic Acid 1 MG, Thiamine 100 MG in Lactated Ringers 1... IV ONE ×4 (16:34)
[2023-03-09] MEDS ORDERED: Haloperidol Lactate 5 MG/ML SDV IVPUSH PRN (16:39)
[2023-03-09] MEDS ORDERED: Midodrine 5 MG Tab PO PRN (16:42)
[2023-03-09] MEDS ORDERED: Magnesium Sulfate/Water 2 GM in Premix Bag 1 BAG IV ONE ×2 (16:45→21:00)
[2023-03-09] MEDS ORDERED: Melatonin 3 MG Tab PO PRN (16:46)
[2023-03-09] MEDS ORDERED: Flumazenil 0.1 MG/ML 5 ML MDV IVPUSH PRN (16:50)
[2023-03-09] MEDS ORDERED: LORazepam 2 MG/ML SDV IVPUSH PRN (16:50)
[2023-03-09] MEDS ORDERED: traMADol 50 MG Tab PO PRN (16:51)
[2023-03-09] MEDS ORDERED: cefTRIAXone 2 GM Vial IVPUSH ONE (16:53)
[2023-03-09] MEDS ORDERED: Sodium Bicarbonate 100 MEQ in Dextrose 5% in Water 1,000 ML IV ONE ×4 (18:11→20:00)
[2023-03-09] MEDS: Saccharomyces Boulardii (Probiotic) 250 MG Cap PO SCH (20:33)
[2023-03-09] MEDS: Rifaximin 550 MG Tab PO SCH (20:33)
[2023-03-09] MEDS ORDERED: Lactulose Soln 10 GM/15 ML 30 ML UD Cup PO SCH (21:00)
[2023-03-09] MEDS ORDERED: traZODone 50 MG Tab PO ONE (23:19)
[2023-03-10] MEDS ORDERED: Potassium Chloride 20 MEQ in Premix Bag 1 BAG IV ONE ×3 (01:00→08:07)
[2023-03-10] MEDS ORDERED: Magnesium Sulfate/Water 2 GM in Premix Bag 1 BAG IV ONE (04:00)
[2023-03-10 06:41] LABS: BASOPHILS PERCENT AUTO 0.2 % (0.0-1.0); HEMATOCRIT 33.7 % (37.0-47.0); HEMOGLOBIN 11.9 g/dL (12.0-16.0); LYMPHOCYTES PERCENT AUTO 18.9 % (20.5-50.1); MEAN CORPUSCULAR HEMOGLOBIN 36.2 pg (27.0-34.0); MEAN CORPUSCULAR HGB CONC 35.3 g/dL (33.0-35.0); MEAN CORPUSCULAR VOLUME 102.4 fL (80-100); MONOCYTES PERCENT AUTO 10.5 % (2-8); NEUTROPHILS PERCENT AUTO 70.4 % (42.2-75.2); PLATELET COUNT,PLT 184 10^3/uL (150-450); RED BLOOD CELL COUNT 3.29 10^6/uL (4.2-5.4); WHITE BLOOD CELL COUNT,WBC 10.5 10^3/uL (5.0-10.0)
[2023-03-10 06:52] LABS: ALBUMIN 3.3 g/dL (3.4-5.0); ANION GAP 16.1 mEq/L (7-13); BILIRUBIN TOTAL 1.2 mg/dL (0.2-1.0); BUN/CREATININE RATIO 16.8 (No establ ref range); CALCIUM 7.7 mg/dL (8.5-10.1); CREATININE 1.96 mg/dL (0.55-1.02); EST CRCL DRUG DOSING (CG) 35.25 mL/min; PROTEIN TOTAL,TP 7.6 g/dL (6.4-8.2)
[2023-03-10 06:54] LABS: A/G RATIO 0.77
[2023-03-10 06:57] LABS: POTASSIUM,K 2.1 mmol/L (3.5-5.1)
[2023-03-10] MEDS ORDERED: Potassium Chloride 10 MEQ Tab.ER PO ONE (08:09)
[2023-03-10] MEDS: cefTRIAXone 1 GM Vial IVPUSH SCH (09:00)
[2023-03-10] MEDS: Rifaximin 550 MG Tab PO SCH ×2 (09:03→21:03)
[2023-03-10] MEDS: Saccharomyces Boulardii (Probiotic) 250 MG Cap PO SCH ×2 (09:03→21:03)
[2023-03-10] MEDS: Lactulose Soln 10 GM/15 ML 30 ML UD Cup PO SCH ×3 (09:06→21:03)
[2023-03-10] MEDS ORDERED: FLU (Fluarix Quad) QS2023-24(6MOS UP)/PF 60 MCG/0.5 ML Syringe IM ONE (10:00)
[2023-03-10] MEDS: Multivitamin Tab PO SCH (21:03)
[2023-03-10] MEDS: Thiamine 100 MG Tab PO SCH (21:03)
[2023-03-10] MEDS: Folic Acid 1 MG Tab PO SCH (21:03)
[2023-03-11 07:46] LABS: ALBUMIN 2.7 g/dL (3.4-5.0); ANION GAP 10.4 mEq/L (7-13); BUN/CREATININE RATIO 11.5 (No establ ref range); CALCIUM 7.5 mg/dL (8.5-10.1); CREATININE 1.39 mg/dL (0.55-1.02); EST CRCL DRUG DOSING (CG) 49.7 mL/min; MAGNESIUM 2.6 mg/dL (1.8-2.4); PROTEIN TOTAL,TP 6.9 g/dL (6.4-8.2)
[2023-03-11 07:50] LABS: A/G RATIO 0.64; POTASSIUM,K 2.4 mmol/L (3.5-5.1)
[2023-03-11] MEDS ORDERED: Potassium Chloride 20 MEQ in Premix Bag 1 BAG IV ONE (08:04)
[2023-03-11] MEDS: cefTRIAXone 1 GM Vial IVPUSH SCH (08:38)
[2023-03-11] MEDS: Thiamine 100 MG Tab PO SCH (08:38)
[2023-03-11] MEDS: Saccharomyces Boulardii (Probiotic) 250 MG Cap PO SCH ×2 (08:39→20:22)
[2023-03-11] MEDS: Rifaximin 550 MG Tab PO SCH ×2 (08:39→20:22)
[2023-03-11] MEDS: Multivitamin Tab PO SCH (08:39)
[2023-03-11] MEDS: Folic Acid 1 MG Tab PO SCH (08:39)
[2023-03-11] MEDS: Lactulose Soln 10 GM/15 ML 30 ML UD Cup PO SCH ×3 (08:43→20:35)
[2023-03-11] MEDS: busPIRone 15 MG Tab PO SCH ×2 (09:00→20:22)
[2023-03-11 11:08] LABS: EOSINOPHILS PERCENT AUTO 0.7 % (1.0-3.0); HEMOGLOBIN 11.4 g/dL (12.0-16.0); LYMPHOCYTES PERCENT AUTO 22.5 % (20.5-50.1); MEAN CORPUSCULAR HEMOGLOBIN 36.1 pg (27.0-34.0); MEAN CORPUSCULAR HGB CONC 34.5 g/dL (33.0-35.0); MEAN CORPUSCULAR VOLUME 104.4 fL (80-100); MONOCYTES PERCENT AUTO 7.6 % (2-8); NEUTROPHILS PERCENT AUTO 69.2 % (42.2-75.2); PLATELET COUNT,PLT 86 10^3/uL (150-450); RED BLOOD CELL COUNT 3.16 10^6/uL (4.2-5.4); WHITE BLOOD CELL COUNT,WBC 2.8 10^3/uL (5.0-10.0)
[2023-03-11] MEDS: Ertapenem 1 GM in Sodium Chloride 0.9% 50 ML IV SCH (13:00)
[2023-03-11] MEDS ORDERED: Potassium Chloride 10 MEQ Tab.ER PO SCH (21:00)
[2023-03-12 06:46] LABS: BASOPHILS PERCENT AUTO 0.4 % (0.0-1.0); EOSINOPHILS PERCENT AUTO 2.2 % (1.0-3.0); HEMATOCRIT 32.5 % (37.0-47.0); HEMOGLOBIN 11.1 g/dL (12.0-16.0); LYMPHOCYTES PERCENT AUTO 31.5 % (20.5-50.1); MEAN CORPUSCULAR HEMOGLOBIN 36.2 pg (27.0-34.0); MEAN CORPUSCULAR HGB CONC 34.2 g/dL (33.0-35.0); MEAN CORPUSCULAR VOLUME 105.9 fL (80-100); MONOCYTES PERCENT AUTO 7.3 % (2-8); NEUTROPHILS PERCENT AUTO 58.6 % (42.2-75.2); PLATELET COUNT,PLT 76 10^3/uL (150-450); RED BLOOD CELL COUNT 3.07 10^6/uL (4.2-5.4); WHITE BLOOD CELL COUNT,WBC 2.3 10^3/uL (5.0-10.0)
[2023-03-12 07:02] LABS: ALBUMIN 2.8 g/dL (3.4-5.0); ANION GAP 8.4 mEq/L (7-13); BUN/CREATININE RATIO 8.6 (No establ ref range); CALCIUM 7.7 mg/dL (8.5-10.1); CREATININE 1.16 mg/dL (0.55-1.02); EST CRCL DRUG DOSING (CG) 59.56 mL/min; MAGNESIUM 2.1 mg/dL (1.8-2.4); PROTEIN TOTAL,TP 6.7 g/dL (6.4-8.2)
[2023-03-12 07:04] LABS: A/G RATIO 0.72; POTASSIUM,K 2.4 mmol/L (3.5-5.1)
[2023-03-12] MEDS: Lactulose Soln 10 GM/15 ML 30 ML UD Cup PO SCH ×3 (07:40→20:12)
[2023-03-12] MEDS ORDERED: Potassium Chloride 20 MEQ in Premix Bag 1 BAG IV ONE (08:19)
[2023-03-12] MEDS: Thiamine 100 MG Tab PO SCH (09:45)
[2023-03-12] MEDS: Rifaximin 550 MG Tab PO SCH ×2 (09:45→20:12)
[2023-03-12] MEDS: Potassium Chloride 10 MEQ Tab.ER PO SCH (09:45)
[2023-03-12] MEDS: Saccharomyces Boulardii (Probiotic) 250 MG Cap PO SCH ×2 (09:45→20:13)
[2023-03-12] MEDS: Folic Acid 1 MG Tab PO SCH (09:46)
[2023-03-12] MEDS: Multivitamin Tab PO SCH (09:46)
[2023-03-12] MEDS: Spironolactone 25 MG Tab PO SCH (09:46)
[2023-03-12] MEDS: busPIRone 15 MG Tab PO SCH ×2 (09:46→20:12)
[2023-03-12] MEDS: Furosemide 20 MG Tab PO SCH (13:35)
[2023-03-12] MEDS: Ertapenem 1 GM in Sodium Chloride 0.9% 50 ML IV SCH (13:36)
[2023-03-12] MEDS: traZODone 50 MG Tab PO SCH (20:12)
[2023-03-12] MEDS ORDERED: [UNRECOGNIZED DRUG - OTHER] PO SCH (21:00)
[2023-03-12] MEDS ORDERED: Non-Formulary Medication 1 Each (Buspirone [Buspar] 10 MG Tablet) PO SCH (21:00)
[2023-03-12] MEDS ORDERED: PRAZOSIN 1 MG PO SCH (21:00)
[2023-03-12] MEDS ORDERED: Witch Hazel Medicated Pads 100/Jar TOP PRN (21:49)
[2023-03-13 06:18] LABS: BASOPHILS PERCENT AUTO 0.4 % (0.0-1.0); EOSINOPHILS PERCENT AUTO 2.7 % (1.0-3.0); HEMATOCRIT 31.9 % (37.0-47.0); HEMOGLOBIN 11.8 g/dL (12.0-16.0); LYMPHOCYTES PERCENT AUTO 36.9 % (20.5-50.1); MEAN CORPUSCULAR HEMOGLOBIN 39.5 pg (27.0-34.0); MEAN CORPUSCULAR VOLUME 106.7 fL (80-100); MONOCYTES PERCENT AUTO 10.7 % (2-8); NEUTROPHILS PERCENT AUTO 49.3 % (42.2-75.2); PLATELET COUNT,PLT 66 10^3/uL (150-450); RED BLOOD CELL COUNT 2.99 10^6/uL (4.2-5.4); WHITE BLOOD CELL COUNT,WBC 2.3 10^3/uL (5.0-10.0)
[2023-03-13 06:39] LABS: ALBUMIN 2.7 g/dL (3.4-5.0); ANION GAP 9.5 mEq/L (7-13); BUN/CREATININE RATIO 6.7 (No establ ref range); CALCIUM 7.9 mg/dL (8.5-10.1); CREATININE 1.05 mg/dL (0.55-1.02); EST CRCL DRUG DOSING (CG) 65.8 mL/min; MAGNESIUM 1.7 mg/dL (1.8-2.4); POTASSIUM,K 2.5 mmol/L (3.5-5.1); PROTEIN TOTAL,TP 6.6 g/dL (6.4-8.2)
[2023-03-13 06:55] LABS: A/G RATIO 0.69
[2023-03-13] MEDS: Rifaximin 550 MG Tab PO SCH ×2 (08:45→20:17)
[2023-03-13] MEDS: Multivitamin Tab PO SCH (08:45)
[2023-03-13] MEDS: Sertraline 50 MG Tab PO SCH (08:45)
[2023-03-13] MEDS: Potassium Chloride 10 MEQ Tab.ER PO SCH (08:45)
[2023-03-13] MEDS: Furosemide 20 MG Tab PO SCH ×2 (08:45→14:09)
[2023-03-13] MEDS: Thiamine 100 MG Tab PO SCH (08:45)
[2023-03-13] MEDS: Propranolol 10 MG Tab PO SCH (08:46)
[2023-03-13] MEDS: Spironolactone 25 MG Tab PO SCH (08:46)
[2023-03-13] MEDS: Saccharomyces Boulardii (Probiotic) 250 MG Cap PO SCH ×2 (08:46→20:17)
[2023-03-13] MEDS: busPIRone 15 MG Tab PO SCH ×2 (08:46→20:17)
[2023-03-13] MEDS: Lactulose Soln 10 GM/15 ML 30 ML UD Cup PO SCH ×3 (08:53→20:19)
[2023-03-13] MEDS ORDERED: Potassium Chloride 10 MEQ Tab.ER PO ONE (09:52)
[2023-03-13] MEDS: Ertapenem 1 GM in Sodium Chloride 0.9% 50 ML IV SCH (12:37)
[2023-03-13] MEDS: traZODone 50 MG Tab PO SCH (20:17)
[2023-03-14 06:23] LABS: ANION GAP 6.6 mEq/L (7-13); CALCIUM 7.4 mg/dL (8.5-10.1); CREATININE 0.94 mg/dL (0.55-1.02); EST CRCL DRUG DOSING (CG) 73.5 mL/min; POTASSIUM,K 2.6 mmol/L (3.5-5.1)
[2023-03-14] MEDS: Saccharomyces Boulardii (Probiotic) 250 MG Cap PO SCH (08:28)
[2023-03-14] MEDS: Sertraline 50 MG Tab PO SCH (08:29)
[2023-03-14] MEDS: Spironolactone 25 MG Tab PO SCH (08:29)
[2023-03-14] MEDS: busPIRone 15 MG Tab PO SCH (08:30)
[2023-03-14] MEDS: Rifaximin 550 MG Tab PO SCH (08:30)
[2023-03-14] MEDS: Potassium Chloride 10 MEQ Tab.ER PO SCH (08:30)
[2023-03-14] MEDS: Propranolol 10 MG Tab PO SCH (08:30)
[2023-03-14] MEDS: Lactulose Soln 10 GM/15 ML 30 ML UD Cup PO SCH ×2 (08:31→14:10)
[2023-03-14] MEDS: Multivitamin Tab PO SCH (08:31)
[2023-03-14] MEDS: Thiamine 100 MG Tab PO SCH (08:31)
[2023-03-14] MEDS: Furosemide 20 MG Tab PO SCH ×2 (08:31→14:09)
[2023-03-14] MEDS ORDERED: FLU (Fluarix Quad) QS2023-24(6MOS UP)/PF 60 MCG/0.5 ML Syringe IM ONE (11:00)
[2023-03-14] MEDS: Ertapenem 1 GM in Sodium Chloride 0.9% 50 ML IV SCH (11:31)
== END 2023-03-14 15:01 | disposition home or self-care (01) | DRG 442 ==
LOC: DL.ED 11:48 → DL.MS 14:56 → DL.ED 15:02 → DL.MS 15:05 → UNDOADMIN 15:05
PROVIDERS: ADMIT Internal Medicine; ATTEND Internal Medicine
DX: K76.82 Hepatic encephalopathy (principal); D61.818 Other pancytopenia; N39.0 Urinary tract infection, site not specified; B19.20 Unspecified viral hepatitis C without hepatic coma; E87.20 Acidosis, unspecified; N17.9 Acute kidney failure, unspecified; Z79.899 Other long term (current) drug therapy; B96.1 Klebsiella pneumoniae [K. pneumoniae] as the cause of diseases classified elsewhere; B96.89 Other specified bacterial agents as the cause of diseases classified elsewhere; E87.6 Hypokalemia; F41.9 Anxiety disorder, unspecified; F32.A Depression, unspecified; K21.9 Gastro-esophageal reflux disease without esophagitis; K74.60 Unspecified cirrhosis of liver; E66.9 Obesity, unspecified; G89.4 Chronic pain syndrome; E86.0 Dehydration; D75.89 Other specified diseases of blood and blood-forming organs; E87.8 Other disorders of electrolyte and fluid balance, not elsewhere classified; R73.9 Hyperglycemia, unspecified; E83.42 Hypomagnesemia; F10.10 Alcohol abuse, uncomplicated; K70.9 Alcoholic liver disease, unspecified; Z87.442 Personal history of urinary calculi; Z86.19 Personal history of other infectious and parasitic diseases; Z87.891 Personal history of nicotine dependence; Z91.148 Patient's other noncompliance with medication regimen for other reason; Z68.31 Body mass index [BMI] 31.0-31.9, adult
CPT/HCPCS: 36415; 70450; 76705; 80048; 80053; 80305-QW; 80307; 81001; 81025; 82140; 82947; 83605; 83690; 83735; 84145; 85025; 85610; 85730; 87086; 87088; 87186; 90686; 96365; 96366; 96367; 96375; 97110-GP; 97161-GP; 97165-GO; 97530-GO; 99223; 99285; 99285-25; A9270-GY; J0696; J1335; J1630; J2405; J3411; J3475; J3480; J3490; J7030; J7060; J7120

== ENCOUNTER 2024-01-27 19:52 | Emergency (ER) | payer MEDICAID ==
[2024-01-27] MEDS: Acetaminophen/HYDROcodone 325-10 MG Tab PO ONE (20:59)
[2024-01-27] MEDS: Take Home: Acetaminophen/HYDROcodone 325-5 MG, 5 Tab Pack PO ONE (21:24)
== END 2024-01-27 21:37 | disposition home or self-care (01) ==
LOC: DL.ED 19:52
DX: S93.601A Unspecified sprain of right foot, initial encounter (principal); S60.416A Abrasion of right little finger, initial encounter; Z79.899 Other long term (current) drug therapy; W10.8XXA Fall (on) (from) other stairs and steps, initial encounter
CPT/HCPCS: 73610-RT; 73630-RT; 99283; A9270-GY

== ENCOUNTER 2024-06-05 09:29 | Emergency (ER) | payer MEDICAID ==
[2024-06-05] MEDS: Ondansetron 4 MG/2 ML SDV IVPUSH ONE (09:53)
[2024-06-05] MEDS: Lactated Ringers 1,000 ML IV ONE (09:54)
[2024-06-05 09:55] LABS: APPEARANCE,URINE CLOUDY (CLEAR); BILIRUBIN,URINE MODERATE (NEGATIVE); COLOR,URINE YELLOW (YELLOW); GLUCOSE,URINE NEGATIVE (NEGATIVE); KETONES,URINE NEGATIVE (NEGATIVE); LEUKOCYTE ESTERASE,URINE LARGE (NEGATIVE); NITRITE,URINE NEGATIVE (NEGATIVE); OCCULT BLOOD,URINE LARGE (NEGATIVE); PROTEIN,URINE 100 (NEGATIVE); UROBILINOGEN,URINE >=8.0 mg/dL (0.2-1.0)
[2024-06-05 10:01] LABS: BASOPHILS PERCENT AUTO 0.2 % (0.0-1.0); HEMATOCRIT 37.3 % (37.0-47.0); HEMOGLOBIN 13.1 g/dL (12.0-16.0); LYMPHOCYTES PERCENT AUTO 10.4 % (20.5-50.1); MEAN CORPUSCULAR HEMOGLOBIN 38.6 pg (27.0-34.0); MEAN CORPUSCULAR HGB CONC 35.1 g/dL (33.0-35.0); MONOCYTES PERCENT AUTO 9.8 % (2-8); NEUTROPHILS PERCENT AUTO 79.6 % (42.2-75.2); PLATELET COUNT,PLT 93 10^3/uL (150-450); RED BLOOD CELL COUNT 3.39 10^6/uL (4.2-5.4); WHITE BLOOD CELL COUNT,WBC 9.5 10^3/uL (5.0-10.0)
[2024-06-05 10:07] LABS: BACTERIA,URINE MANY /HPF (0-FEW/HPF); EPITHELIAL CELLS,URINE FEW /HPF (NOT SEEN); MUCUS,URINE FEW /LPF (NOT SEEN); WBC,URINE PACKED /HPF (0-5/HPF)
[2024-06-05 10:22] LABS: A/G RATIO 0.54; ALANINE AMINOTRANSFERASE,ALT 16 U/L (14-59); ALBUMIN 2.8 g/dL (3.4-5.0); ALKALINE PHOSPHATASE 72 U/L (46-116); ANION GAP 12.8 mEq/L (7-13); ASPARTATE AMNIOTRANSFERASE,AST 35 U/L (15-37); BILIRUBIN TOTAL 5.6 mg/dL (0.2-1.0); BLOOD UREA NITROGEN,BUN 18 mg/dL (7-18); BUN/CREATININE RATIO 12.5 (No establ ref range); CALCIUM 7.7 mg/dL (8.5-10.1); CARBON DIOXIDE,CO2 27 mmol/L (21-32); CHLORIDE,CL 93 mmol/L (98-107); CREATININE 1.44 mg/dL (0.55-1.02); ESTIMATED GFR 45 mL/min (>=60); GLUCOSE RANDOM 208 mg/dL (70-99); POTASSIUM,K 2.8 mmol/L (3.5-5.1); SODIUM,NA 130 mmol/L (136-145)
[2024-06-05] MEDS: cefTRIAXone 2 GM Vial IVPUSH ONE (10:50)
[2024-06-05] MEDS: HYDROmorphone 0.5 MG/0.5 ML Syringe IVPUSH ONE (10:55)
[2024-06-05] MEDS: Iopamidol 612 MG/ML 100 ML Bottle IVPUSH ONE (10:59)
[2024-06-05] MEDS: D5 1/2 NS w/ 40 mEq/L KCl 1,000 ML IV SCH (11:45)
[2024-06-05] MEDS ORDERED: Naloxone 2 MG/2 ML Syringe IVPUSH PRN (11:49)
[2024-06-05] MEDS ORDERED: Lactated Ringers 1,000 ML IV SCH (12:00)
[2024-06-05] MEDS ORDERED: Ondansetron 4 MG/2 ML SDV IVPUSH PRN (12:04)
[2024-06-05] MEDS: Acetaminophen 325 MG Tab PO ONE (12:14)
[2024-06-05] MEDS: HYDROmorphone 2 MG/ML Syringe IVPUSH PRN (13:20)
== END 2024-06-05 16:00 ==
LOC: DL.ED 09:29
DX: N11.1 Chronic obstructive pyelonephritis (principal)
CPT/HCPCS: 36415; 74177; 80053; 81001; 81025; 85025; 87086; 87088; 87186; 96361; 96365; 96366; 96375; 96376; 99285; A9270; J0696; J1171; J2405; J3480; J7120; Q9967

== ENCOUNTER 2024-12-26 18:57 | Emergency (ER) | payer MEDICAID ==
[2024-12-26] MEDS ORDERED: Sodium Chloride 0.9% 10 ML Syringe FLUSH PRN (19:09)
[2024-12-26 19:21] LABS: BASOPHILS PERCENT AUTO 0.2 % (0.0-1.0); EOSINOPHILS PERCENT AUTO 1.4 % (1.0-3.0); LYMPHOCYTES PERCENT AUTO 36.0 % (20.5-50.1); MONOCYTES PERCENT AUTO 6.9 % (2-8); NEUTROPHILS PERCENT AUTO 55.5 % (42.2-75.2); PLATELET COUNT,PLT 67 10^3/uL (150-450); RED BLOOD CELL COUNT 1.56 10^6/uL (4.2-5.4); WHITE BLOOD CELL COUNT,WBC 4.2 10^3/uL (5.0-10.0)
[2024-12-26] MEDS: Ondansetron 4 MG Tab.DIS PO ONE (19:32)
[2024-12-26 19:39] LABS: INR 1.9 (0.9-1.2)
[2024-12-26 19:42] LABS: ALANINE AMINOTRANSFERASE,ALT 25 U/L (14-59); ASPARTATE AMNIOTRANSFERASE,AST 78 U/L (15-37); BILIRUBIN TOTAL 6.8 mg/dL (0.2-1.0); BLOOD UREA NITROGEN,BUN 42 mg/dL (7-18); CHLORIDE,CL 97 mmol/L (98-107); CREATININE 6.45 mg/dL (0.55-1.02); GLUCOSE RANDOM 97 mg/dL (70-99); PROTEIN TOTAL,TP 6.6 g/dL (6.4-8.2)
[2024-12-26 19:46] LABS: CARBON DIOXIDE,CO2 26 mmol/L (21-32); POTASSIUM,K 4.0 mmol/L (3.5-5.1); SODIUM,NA 132 mmol/L (136-145)
[2024-12-26 19:49] LABS: ESTIMATED GFR 7 mL/min (>=60)
[2024-12-26 19:50] LABS: A/G RATIO 0.57
== END 2024-12-26 22:52 ==
LOC: DL.ED 18:57
DX: K92.2 Gastrointestinal hemorrhage, unspecified (principal); N17.9 Acute kidney failure, unspecified; Z79.899 Other long term (current) drug therapy
CPT/HCPCS: 36415; 36430; 80053; 82272; 83690; 83735; 85025; 85610; 86140; 86850; 86900; 86901; 86920; 86922; 96365; 96366; 99285; A9270; J2470; J7030; P9016